=== PATIENT | male | born 1960 | race Caucasian/White ===

== ENCOUNTER 2017-07-21 15:44 | Emergency (ER) | payer OTHER ==
[2017-07-21] MEDS ORDERED: Aspirin Low Dose CHEW TAB* 81 MG PO ONE (16:12)
[2017-07-21] MEDS ORDERED: Ondansetron INJ* 2 MG/ML VIAL IV ONE (16:39)
[2017-07-21] MEDS ORDERED: Morphine INJ* 4 MG/ML 1 ML CARPUJECT IV ONE (16:39)
[2017-07-21 16:48] LABS: Hematocrit 33 % (42-52); Mean Corpuscular HGB Conc 34 g/dl (31-36); Mean Corpuscular Hemoglobin 31 pg (27-31); Mean Corpuscular Volume 91 fL (80-94); Mean Platelet Volume 7 um3 (7.4-10.4); Red Blood Count 3.55 10^6/ul (4.0-5.4); Red Cell Distribution Width 13 % (10.5-15); White Blood Count 7.2 10^3/ul (3.5-10.8)
--- NOTE | 2017-07-21 17:03 | RAD ---
HISTORY: Chest pain COMPARISONS: June 10, 2016 VIEWS:1: Single frontal portable view of the chest at 4:20 PM FINDINGS: LINES AND TUBES: None. CARDIOMEDIASTINAL SILHOUETTE: The cardiomediastinal silhouette is normal for portable technique. PLEURA: The costophrenic angles are sharp. No pleural abnormalities are noted. LUNG PARENCHYMA: The lungs are clear. ABDOMEN: The upper abdomen is clear. There is no subphrenic gas. BONES AND SOFT TISSUES: No bone or soft tissue abnormalities are noted. IMPRESSION: NO ACTIVE CARDIOPULMONARY DISEASE.
[2017-07-21 17:05] LABS: ALT 12 U/L (7-52); AST 9 U/L (13-39); Albumin 3.3 g/dL (3.2-5.2); Alkaline Phosphatase 52 U/L (34-104); BUN/Creatinine Ratio 17.9 (8-20); Blood Urea Nitrogen 12 mg/dL (6-24); CO2 Carbon Dioxide 22 mmol/L (22-32); Calcium 7.1 mg/dL (8.6-10.3); Chloride 114 mmol/L (101-111); EGFR African American 156.7 (>60); EGFR Non-African American 121.8 (>60); Glucose 81 mg/dL (70-100); Potassium 3.1 mmol/L (3.5-5.0); Sodium 134 mmol/L (133-145); Total Protein 5.3 g/dL (6.4-8.9)
[2017-07-21 17:07] LABS: Troponin I 0.03 ng/mL (<0.04)
[2017-07-21] MEDS ORDERED: Iohexol 350* (CONTRAST) 500 ML MDV IV ONE (17:46)
[2017-07-21 19:11] VITALS: BP 111/77
--- NOTE | 2017-07-21 19:12 | RAD ---
HISTORY: Chest pain, back pain COMPARISONS: None TECHNIQUE: Multiple contiguous axial CT scans were obtained of the chest, abdomen, and pelvis after the administration of intravenous contrast. Coronal and sagittal multiplanar reformations are submitted for review.. Oral contrast was not administered. 3-D volumetric reconstructions of the aorta are also submitted for review. FINDINGS: CHEST NECK AND THYROID: The lower neck and thyroid are unremarkable. CHEST WALL: There is no lower cervical, axillary, or supraclavicular lymphadenopathy by size criteria. HEART AND PERICARDIUM: The heart is unremarkable. AORTA AND PULMONARY VASCULATURE: There is atheromatous disease of the thoracic aorta, without aneurysmal dilatation or intimal flap. There is no pulmonary arterial filling defect to suggest pulmonary embolism. MEDIASTINUM: There is no mediastinal lymphadenopathy by size criteria. MARY KAY: There is no hilar lymphadenopathy by size criteria. AIRWAY AND ESOPHAGUS: The airway is unremarkable, without endobronchial filling defect. The esophagus is grossly normal. LUNG PARENCHYMA: There is centrilobular emphysematous change of the lung apices bilaterally. There is a 0.4 cm nodule of the right lower lobe on axial image 38. There is minimal dependent atelectasis. PLEURA: No pleural abnormalities are noted. BONES AND SOFT TISSUES: Degenerative changes are noted ABDOMEN/PELVIS: LIVER: The liver is normal in shape, size, contour, and attenuation. BILE DUCTS: There is no intrahepatic or extrahepatic biliary dilatation. GALLBLADDER: The gallbladder is normal, without pericholecystic inflammatory change. PANCREAS: The pancreas is normal, without mass or ductal dilatation. SPLEEN: Normal in size and appearance. UPPER GI TRACT: Evaluation of the gastrointestinal tract is limited by incomplete gastric distention. The upper GI tract is unremarkable. SMALL BOWEL \\T\\ MESENTERY: The small bowel is normal in contour, course, and caliber. There is no obstruction or dilatation. COLON: The colon is normal in contour, course, caliber. There is no pericolonic inflammatory change. There is a tubular, vermiform, hollow viscus that is blind ending, and originates from the cecum, consistent with a normal appendix. There is no periappendiceal inflammatory change. This is best seen on axial images 186-204. ADRENALS: Normal bilaterally. KIDNEYS: The kidneys are normal in shape, size, contour, and axis. There is no hydronephrosis or nephrolithiasis. BLADDER: The bladder is smooth in contour. PELVIC ORGANS: The prostate is diffusely enlarged. The seminal vesicles are symmetric. AORTA: There is calcific atherosclerotic disease of the abdominal aorta and its branches, without aneurysmal dilatation. There is no intimal flap. IVC: Unremarkable LYMPH NODES: There is no lymphadenopathy by size criteria. ABDOMINAL WALL: There is no evidence for abdominal wall hernia. BONES: Degenerative changes are noted OTHER: None IMPRESSION: 1. NO AORTIC INTIMAL FLAP TO SUGGEST DISSECTION. NO ANEURYSMAL DILATATION. 2. EMPHYSEMA. 3. 0.4 CM NODULE OF THE RIGHT LOWER LOBE. THE RECOMMENDATIONS FOR FOLLOWUP AND MANAGEMENT OF AN INCIDENTALLY DETECTED PULMONARY NODULE LESS THAN 6 MM IN SIZE, IN A PATIENT WITHOUT A HISTORY OF MALIGNANCY, INCLUDE NO FOLLOWUP FOR A LOW-RISK PATIENT OR OPTIONAL FOLLOWUP CT IN 12 MONTHS FOR A HIGH RISK PATIENT. 4. ENLARGED PROSTATE. 5. ATHEROSCLEROSIS NOTES: SIZE = AVERAGE LENGTH AND WIDTH; HIGH RISK IS DEFINED A HISTORY OF SMOKING OR OTHER KNOW RISK FACTORS FOR LUNG CANCER; LOW RISK IS DEFINED MINIMAL OR ABSENT HISTORY OF SMOKING OR OTHER KNOWN RISK FACTORS. Remy, H, TIFFANY Schmidt, FÉLIX Oliveros, et al (2017) "Guidelines for Management of Incidental Pulmonary Nodules Detected on CT Images: From the Fleischner Society 2017." Radiology; 284(1): 228-243. doi:10.1148/[id number]
--- NOTE | 2017-07-28 22:12 | ED ---
Kaycee Saldaña SooYoung, scribed for Angel Mchugh MD on 07/21/17 at 1632 . Complex/Multi-Sys Presentation - HPI Summary HPI Summary: A 56 y/o M TED presents to ED after possible sz with c/o L anterior CP and lower back pain. Pt woke up with low back pain this AM. Onset of the CP was later in the AM. At 1500, EMS was called because pt was having a sz. Per , pt fell out of his chair, onto the porch, then off the porch; pt was yelling, "my chest, my back." Pert PMHx: sz, MD, COPD. Associated sx: cough. Denies incontinence, LE numbness/tingling. gave pt Gapapentin for the sz. Pt also chewed 4 baby aspirin at home while waiting for the ambulance, and received nitro en route to ED to no relief. At bedside, CP is still present and rated as 6/10. Denies PMHx of stents, CABG, chronic back pain. Smoker. No ETOH. No drugs. Pt is on home O2. - History Of Current Complaint Chief Complaint: EDChestPainROMI Time Seen by Provider: 07/21/17 16:12 Hx Obtained From: Patient, Family/[employer] Operations Manager Onset/Duration: Lasting Hours - CP, Still Present - CP Timing: Constant Severity Initially: Moderate - CP rated as 6/10 Associated Signs And Symptoms: Positive: Cough, Chest Pain, Back Pain, Other - pos: sz; neg: LE numbness/tingling, incontinence - Allergies/Home Medications Allergies/Adverse Reactions: Allergies Allergy/AdvReac Type Severity Reaction Status Date / Time Penicillin G Allergy Severe Airway Verified 06/10/16 19:33 Obstruction PMH/Surg Hx/FS Hx/Imm Hx Previously Healthy: No Cardiovascular History: Reports: Hx Myocardial Infarction Respiratory History: Reports: Hx Chronic Obstructive Pulmonary Disease (COPD) Neurological History: Reports: Hx Seizures - Surgical History Surgery Procedure, Year, and Place: NO NEURO HX OF SURGERY Infectious Disease History: Denies: Traveled Outside the [place] in Last 30 Days - Family History Known Family History: Positive: Seizure Disorder - mom, Other - neg: aneurysm - Social History Occupation: Unemployed Lives: With Family Alcohol Use: Occasionally Hx Substance Use: No Substance Use Type: Reports: None Hx Tobacco Use: Yes Smoking Status (MU): Heavy Every Day Tobacco Smoker Review of Systems Negative: Fever, Chills Negative: Erythema Negative: Sore Throat Positive: Chest Pain Negative: Shortness Of Breath, Cough Negative: Abdominal Pain, Vomiting, Nausea Negative: dysuria, hematuria, incontinence Positive: Other - pos: low back pain. Negative: Edema Negative: Rash Neurological: Other - neg: dizziness Negative: Numbness All Other Systems Reviewed And Are Negative: Yes Physical Exam - Summary Physical Exam Summary: Constitutional: Well-developed, Well-nourished, Alert. (-) Distressed Skin: Warm, Dry HENT: Normocephalic; Atraumatic Eyes: Conjunctiva normal Neck: Musculoskeletal ROM normal neck. (-) JVD, (-) Stridor, (-) Tracheal deviation Cardio: Rhythm regular, rate normal, Heart sounds normal; Intact distal pulses; The pedal pulses are 2+ and symmetric. Radial pulses are 2+ and symmetric. (-) Murmur Pulmonary/Chest wall: Effort normal. (-) Respiratory distress, (-) Wheezes, (-) Rales Abd: Soft, (-) Tenderness, (-) Distension, (-) Guarding, (-) Rebound Musculoskeletal: (-) Edema. Pain with flexion of lower back, point tenderness at L3 and L4 Lymph: (-) Cervical adenopathy Neuro: Alert, Oriented x3 Psych: Mood and affect Normal Triage Information Reviewed: Yes Vital Signs On Initial Exam: Initial Vitals BP 117/69 07/21/17 16:24 Vital Signs Reviewed: Yes Diagnostics - Vital Signs Vital Signs Temp Pulse Resp BP Pulse Ox 07/21/17 19:00 79 16 92 07/21/17 18:39 84 18 92 07/21/17 18:00 73 13 111/77 98 07/21/17 17:30 72 17 114/73 100 07/21/17 17:15 37.2 C 72 16 118/69 100 07/21/17 17:00 73 16 118/69 98 07/21/17 16:44 16 07/21/17 16:30 17 121/82 07/21/17 16:25 73 19 97 07/21/17 16:24 117/69 - Laboratory Lab Results: Lab Results 07/21/17 07/21/17 07/21/17 Range/Units 16:35 16:35 16:35 WBC 7.2 (3.5-10.8) 10^3/ul RBC 3.55 L (4.0-5.4) 10^6/ul Hgb 11.0 L (14.0-18.0) g/dl Hct 33 L (42-52) % MCV 91 (80-94) fL MCH 31 (27-31) pg MCHC 34 (31-36) g/dl RDW 13 (10.5-15) % Plt Count 177 (150-450) 10^3/ul MPV 7 L (7.4-10.4) um3 Neut % (Auto) 71.2 (38-83) % Lymph % (Auto) 16.1 L (25-47) % [place] % (Auto) 8.8 (1-9) % Eos % (Auto) 3.2 (0-6) % Baso % (Auto) 0.7 (0-2) % Absolute Neuts (auto) 5.2 (1.5-7.7) 10^3/ul Absolute Lymphs (auto) 1.2 (1.0-4.8) 10^3/ul Absolute Monos (auto) 0.6 (0-0.8) 10^3/ul Absolute Eos (auto) 0.2 (0-0.6) 10^3/ul Absolute Basos (auto) 0.1 (0-0.2) 10^3/ul Absolute Nucleated RBC 0 10^3/ul Nucleated RBC % 0 Sodium 134 (133-145) mmol/L Potassium 3.1 L (3.5-5.0) mmol/L Chloride 114 H (101-111) mmol/L Carbon Dioxide 22 (22-32) mmol/L BUN 12 (6-24) mg/dL Creatinine 0.67 (0.67-1.17) mg/dL Est GFR ( Amer) 156.7 (>60) Est GFR (Non-Af Amer) 121.8 (>60) BUN/Creatinine Ratio 17.9 (8-20) Glucose 81 (70-100) mg/dL Lactic Acid 1.0 (0.5-2.0) mmol/L Calcium 7.1 L (8.6-10.3) mg/dL Total Bilirubin 0.30 (0.2-1.0) mg/dL AST 9 L (13-39) U/L ALT 12 (7-52) U/L Alkaline Phosphatase 52 (34-104) U/L Troponin I 0.03 (<0.04) ng/mL Total Protein 5.3 L (6.4-8.9) g/dL Albumin 3.3 (3.2-5.2) g/dL Globulin 2.0 (2-4) g/dL Albumin/Globulin Ratio 1.7 (1-3) // Range/Units 19:20 WBC (3.5-10.8) 10^3/ul RBC (4.0-5.4) 10^6/ul Hgb (14.0-18.0) g/dl Hct (42-52) % MCV (80-94) fL MCH (27-31) pg MCHC (31-36) g/dl RDW (10.5-15) % Plt Count (150-450) 10^3/ul MPV (7.4-10.4) um3 Neut % (Auto) (38-83) % Lymph % (Auto) (25-47) % [place] % (Auto) (1-9) % Eos % (Auto) (0-6) % Baso % (Auto) (0-2) % Absolute Neuts (auto) (1.5-7.7) 10^3/ul Absolute Lymphs (auto) (1.0-4.8) 10^3/ul Absolute Monos (auto) (0-0.8) 10^3/ul Absolute Eos (auto) (0-0.6) 10^3/ul Absolute Basos (auto) (0-0.2) 10^3/ul Absolute Nucleated RBC 10^3/ul Nucleated RBC % Sodium (133-145) mmol/L Potassium (3.5-5.0) mmol/L Chloride (101-111) mmol/L Carbon Dioxide (22-32) mmol/L BUN (6-24) mg/dL Creatinine (0.67-1.17) mg/dL Est GFR ( Amer) (>60) Est GFR (Non-Af Amer) (>60) BUN/Creatinine Ratio (8-20) Glucose (70-100) mg/dL Lactic Acid (0.5-2.0) mmol/L Calcium (8.6-10.3) mg/dL Total Bilirubin (0.2-1.0) mg/dL AST (13-39) U/L ALT (7-52) U/L Alkaline Phosphatase (34-104) U/L Troponin I 0.01 (<0.04) ng/mL Total Protein (6.4-8.9) g/dL Albumin (3.2-5.2) g/dL Globulin (2-4) g/dL Albumin/Globulin Ratio (1-3) Result Diagrams: 07/21/17 16:35 07/21/17 16:35 Lab Statement: Any lab studies that have been ordered have been reviewed, and results considered in the medical decision making process. - Radiology CXR Xray Interpretation: No Acute Changes - IMPRESSION: No active cardiopulmonary dz. ED physician has reviewed this radiology report and agrees. Radiology Interpretation Completed By: Radiologist - EKG 1636 Cardiac Rate: NL - 72 bpm EKG Rhythm: Sinus Rhythm ST Segment: Normal - no STEMI Complex Multi-Symp Course/Dx Course Of Treatment: Pt is a 56 y/o M BIBA presenting after possible sz with c/ o L anterior CP and lower back pain. Pt woke up with low back pain this AM. Onset of the CP was later in the AM. At 1500, EMS was called because pt was having a sz. Per , pt fell out of his chair, onto the porch, then off the porch; pt was yelling, "my chest, my back." Pert PMHx: sz, MD, COPD. Associated sx: cough. Denies incontinence, LE numbness/tingling. gave pt Gapapentin for the sz. Pt also chewed 4 baby aspirin at home while waiting for the ambulance, and received nitro en route to ED to no relief. At bedside, CP is still present and rated as 6/10. Denies PMHx of stents, CABG, chronic back pain. Smoker. No ETOH. No drugs. Pt is on home O2. Pt given morphine, aspirin , zofran in ED. Bloodwork results are without significant abnormality. EKG is NSR, no STEMI. CXR shows no active cardiopulmonary dz. SO to Dr. Nicholson at shift change, pending CTA read. Recommend second trop or admission. - Diagnoses Provider Diagnoses: Chest pain, unspecified Discharge - Discharge Plan Condition: Stable Disposition: AGAINST MEDICAL ADVICE Discharge Disposition Comment: SO to Dr. Nicholson, pending CTA read. Recommend repeat trop or admission. Referrals: Rosetta Myles NP [Primary Care Provider] - The documentation as recorded by the Kaycee hoskins SooYoung accurately reflects the service I personally performed and the decisions made by me, Angel Mchugh MD.
== END 2017-07-21 19:45 | disposition left against medical advice (07) ==
LOC: ED 15:44
DX: R07.89 Other chest pain (principal); M54.5 Low back pain; M54.9 Dorsalgia, unspecified; F17.210 Nicotine dependence, cigarettes, uncomplicated
CPT/HCPCS: 36415; 71010; 71275; 74174; 80053; 83605; 84484; 85025; 93005; 96374; 96375; 99284; J2270; J2405; Q9967

== ENCOUNTER 2017-08-28 19:46 | Emergency (ER) | payer OTHER ==
[2017-08-28 21:10] LABS: Hematocrit 41 % (42-52); Mean Corpuscular HGB Conc 34 g/dl (31-36); Mean Corpuscular Hemoglobin 31 pg (27-31); Mean Corpuscular Volume 92 fL (80-94); Mean Platelet Volume 7 um3 (7.4-10.4); Red Blood Count 4.49 10^6/ul (4.0-5.4); Red Cell Distribution Width 13 % (10.5-15)
[2017-08-28] MEDS ORDERED: LORazepam TAB(*) 1 MG PO ONE (21:24)
[2017-08-28 21:27] LABS: Troponin I 0.01 ng/mL (<0.04)
[2017-08-28 21:37] LABS: Albumin 4.1 g/dL (3.2-5.2); BUN/Creatinine Ratio 14.1 (8-20); Calcium 8.9 mg/dL (8.6-10.3); EGFR African American 119.1 (>60); EGFR Non-African American 92.6 (>60); Globulin 2.3 g/dL (2-4); Total Bilirubin 0.7 mg/dL (0.2-1.0); Total Protein 6.4 g/dL (6.4-8.9)
[2017-08-28 21:46] VITALS: BP 111/61
[2017-08-28 21:53] LABS: Urine Bilirubin Negative (Negative); Urine Glucose Negative (Negative); Urine Nitrite Negative (Negative)
--- NOTE | 2017-08-28 22:04 | RAD ---
INDICATION: "Choking episode" COMPARISON: Similar chest x-ray July 21, 2017 TECHNIQUE: PA and lateral views of the chest were obtained. FINDINGS: The heart and mediastinum are normal in size and contour. The lungs are grossly clear. There is no evidence of large pleural effusion. Visualized bones are normal for the patient's age. There is no radiographic evidence of free air beneath the diaphragm IMPRESSION: No radiographic evidence of acute cardiopulmonary disease.
--- NOTE | 2017-08-29 13:23 | ED ---
Heidi Saldaña Nilda, scribed for Angel Mchugh MD on 08/28/17 at 2127 . Neurological HPI - HPI Summary HPI Summary: This patient is a 56 year old M BIBA presenting to [facility] accompanied by family with a chief complaint of seizure earlier tonight. The patient rates the pain 4/ 10 in severity. Symptoms aggravated by stress. Symptoms alleviated by spontaneous resolution. Per EMS, patient was found in a post ictal state ( resolved 30 minutes ago). Per , patient had a seizure for 20-30 minutes and was unresponsive s/p seizure. Patient reports abdominal pain and vomiting. Patient denies memory of event, hitting his head, insomnia, tongue bite, urinary incontinence, ETOH abuse, and substance abuse. He is currently on Gabapentin. PMHx includes seizures. - History of Current Complaint Chief Complaint: EDSeizure Stated Complaint: SEIZURES Time Seen by Provider: 08/28/17 20:50 Hx Obtained From: Patient, Family/Is Technician, EMS Onset/Duration: Sudden Onset, Started hours ago, Resolved Pain Intensity: 4 Pain Scale Used: 0-10 Numeric Character: Other: - seizure followed by post ictal state Seizure Character: Generalized Aggravating: Stress Alleviating: Spontanious Resolution Associated Signs and Symptoms: Positive: Nausea/Vomiting - Allergy/Home Medications Allergies/Adverse Reactions: Allergies Allergy/AdvReac Type Severity Reaction Status Date / Time Penicillin G Allergy Severe Airway Verified 06/10/16 19:33 Obstruction PMH/Surg Hx/FS Hx/Imm Hx Cardiovascular History: Reports: Hx Myocardial Infarction Respiratory History: Reports: Hx Chronic Obstructive Pulmonary Disease (COPD) Neurological History: Reports: Hx Seizures - Surgical History Surgery Procedure, Year, and Place: NO NEURO HX OF SURGERY Infectious Disease History: No Infectious Disease History: Denies: Traveled Outside the [place] in Last 30 Days - Family History Known Family History: Positive: Seizure Disorder - mom, Other - neg: aneurysm - Social History Alcohol Use: None Alcohol Amount: NO ALCOHOL IN 2 YEARS Hx Substance Use: No Substance Use Type: Reports: None, Marijuana Hx Tobacco Use: Yes Smoking Status (MU): Heavy Every Day Tobacco Smoker Review of Systems Negative: Fever, Chills Negative: Erythema ENT: Other - negative tongue bite Negative: Sore Throat Negative: Chest Pain Negative: Shortness Of Breath, Cough Positive: Abdominal Pain, Vomiting. Negative: Nausea Negative: dysuria, flank pain, incontinence Negative: Myalgia, Edema Negative: Rash Neurological: Other - seizure with post ictal state, unresposiveness (resolved) ; negative dizziness, head trauma, memory of the event All Other Systems Reviewed And Are Negative: Yes Physical Exam - Summary Physical Exam Summary: Constitutional: Well-developed, Well-nourished, Alert. (-) Distressed Skin: Warm, Dry HENT: Normocephalic; Atraumatic; edentulous Eyes: Conjunctiva normal Neck: Musculoskeletal ROM normal neck. (-) JVD, (-) Stridor, (-) Tracheal deviation Cardio: Rhythm regular, rate normal, Heart sounds normal; Intact distal pulses; The pedal pulses are 2+ and symmetric. Radial pulses are 2+ and symmetric. (-) Murmur Pulmonary/Chest wall: Effort normal. (-) Respiratory distress, (-) Wheezes, (-) Rales Abd: Soft, (-) Tenderness, (-) Distension, (-) Guarding, (-) Rebound Musculoskeletal: (-) Edema Lymph: (-) Cervical adenopathy Neuro: Alert, Oriented x3 Psych: Mood and affect Normal Triage Information Reviewed: Yes Vital Signs On Initial Exam: Initial Vitals Temp Pulse Resp BP Pulse Ox 99.7 F 70 18 112/72 97 08/28/17 19:47 08/28/17 19:47 08/28/17 19:47 08/28/17 19:47 08/28/17 19:47 Vital Signs Reviewed: Yes - [place] Coma Scale Coma Scale Total: 15 Diagnostics - Vital Signs Vital Signs Temp Pulse Resp BP Pulse Ox 08/28/17 20:00 65 103/74 94 08/28/17 19:55 112/72 08/28/17 19:47 99.7 F 70 18 112/72 97 - Laboratory Lab Results: Lab Results 08/28/17 Range/Units 21:00 WBC 9.0 (3.5-10.8) 10^3/ul RBC 4.49 (4.0-5.4) 10^6/ul Hgb 14.0 (14.0-18.0) g/dl Hct 41 L (42-52) % MCV 92 (80-94) fL MCH 31 (27-31) pg MCHC 34 (31-36) g/dl RDW 13 (10.5-15) % Plt Count 214 (150-450) 10^3/ul MPV 7 L (7.4-10.4) um3 Neut % (Auto) 75.0 (38-83) % Lymph % (Auto) 13.3 L (25-47) % [place] % (Auto) 7.6 (1-9) % Eos % (Auto) 3.3 (0-6) % Baso % (Auto) 0.8 (0-2) % Absolute Neuts (auto) 6.7 (1.5-7.7) 10^3/ul Absolute Lymphs (auto) 1.2 (1.0-4.8) 10^3/ul Absolute Monos (auto) 0.7 (0-0.8) 10^3/ul Absolute Eos (auto) 0.3 (0-0.6) 10^3/ul Absolute Basos (auto) 0.1 (0-0.2) 10^3/ul Absolute Nucleated RBC 0 10^3/ul Nucleated RBC % 0 Result Diagrams: 08/28/17 21:00 08/28/17 21:00 Lab Statement: Any lab studies that have been ordered have been reviewed, and results considered in the medical decision making process. - Radiology CXR Radiology Interpretation Completed By: Radiologist - CXR reveals no radiographic evidence of acute cardiopulmonary disease. ED physician has reviewed this radiology report and agrees. - EKG 2103 Cardiac Rate: Bradycardia - 55 bpm EKG Rhythm: Sinus Bradycardia EKG Interpretation: No STEMI Course/Dx - Course Course Of Treatment: This patient is a 56 year old M BIBA presenting to [facility] accompanied by family with a chief complaint of seizure earlier tonight. The patient rates the pain 4/10 in severity. Symptoms aggravated by stress. Symptoms alleviated by spontaneous resolution. Per EMS, patient was found in a post ictal state (resolved 30 minutes ago). Per , patient had a seizure for 20-30 minutes and was unresponsive s/p seizure. Patient reports abdominal pain and vomiting. Patient denies memory of event, hitting his head, insomnia, tongue bite, urinary incontinence, ETOH abuse, and substance abuse. He is currently on Gabapentin. PMHx includes seizures. An EKG [2103] reveals sinus bradycardia, 55bpm, no STEMI. CXR reveals no radiographic evidence of acute cardiopulmonary disease. ED physician has reviewed this radiology report and agrees. Patient will be discharged with a diagnosis of stress reaction and breakthrough seizure and follow up from Dr. Monreal (Neuro) in 2-3 days. The patient is agreeable with this plan. - Diagnoses Provider Diagnoses: Breakthrough seizure, Stress reaction Discharge - Discharge Plan Condition: Stable Disposition: HOME Patient Education Materials: Stress (ED), Recurrent Seizures in Adults (ED) Forms: *Work Release Referrals: Rosetta Myles, JOAQUIN [Primary Care Provider] - Rah YAO,Sarkis [Medical Doctor] - 3 Days Additional Instructions: Follow up with Neurologist in 2-3 days. RETURN TO THE EMERGENCY DEPARTMENT FOR CHANGING OR WORSENING SYMPTOMS. The documentation as recorded by the Heidi hoskins Nilda accurately reflects the service I personally performed and the decisions made by , Angel Mchugh MD.
== END 2017-08-28 23:14 | disposition home or self-care (01) ==
LOC: ED 19:46
DX: R56.9 Unspecified convulsions (principal); F43.9 Reaction to severe stress, unspecified; R10.9 Unspecified abdominal pain; R11.10 Vomiting, unspecified; F17.210 Nicotine dependence, cigarettes, uncomplicated
CPT/HCPCS: 36415; 71020; 80053; 81003; 82550; 83605; 83735; 84484; 85025; 85610; 93005; 99282; A9270-GY

== ENCOUNTER 2017-12-17 15:40 | Observation (INO) | payer OTHER ==
[2017-12-17] MEDS ORDERED: NS 0.9% 1000 ML* 1,000 ML IV ONE (16:28)
[2017-12-17] MEDS ORDERED: Acetaminophen TAB* 325 MG PO ONE (16:30)
--- NOTE | 2017-12-17 17:09 | RAD ---
Indication: Fever. Single frontal view of the chest performed at 1702 hours was reviewed. Comparison is made with previous exam dated August 28, 2017. No mediastinal shift is noted. Lung bruce appear hyperinflated. Prominent interstitial markings are noted suggestive of vascular congestion. IMPRESSION: PROMINENT INTERSTITIUM SUGGESTIVE OF VASCULAR CONGESTION.
[2017-12-17] MEDS ORDERED: methylPREDNISolone 125 MG* 2 ML VIAL IV ONE (17:15)
[2017-12-17] MEDS ORDERED: Albuterol/Ipratropium NEB.SOL* Albuterol 2.5 MG/Ipratropium 0.5 MG 3 ML INH ONE (17:16)
[2017-12-17 17:17] LABS: Urine Appearance Clear; Urine Blood Negative (Negative); Urine Color Yellow; Urine Ketones Negative (Negative); Urine Protein Negative (Negative); Urine Specific Gravity 1.019 (1.010-1.030); Urine Urobilinogen Positive (Negative)
[2017-12-17] MEDS ORDERED: methylPREDNISolone 125 MG* 2 ML VIAL ONE (17:18)
[2017-12-17 17:32] LABS: ABS Basophils 0 10^3/ul (0-0.2); ABS Eosinophils 0.1 10^3/ul (0-0.6); ABS Lymphocytes 0.6 10^3/ul (1.0-4.8); ABS Neutrophils 5.9 10^3/ul (1.5-7.7); ABS Nucleated RBC 0 10^3/ul; Eosinophil % 1.9 % (0-6); Hematocrit 42 % (42-52); Hemoglobin 14.4 g/dl (14.0-18.0); Lymphocyte % 8.3 % (25-47); Mean Corpuscular HGB Conc 34 g/dl (31-36); Mean Corpuscular Hemoglobin 31 pg (27-31); Mean Corpuscular Volume 90 fL (80-94); Mean Platelet Volume 7 um3 (7.4-10.4); Nucleated Red Blood Cells % 0; Platelet Count 223 10^3/ul (150-450); Red Blood Count 4.68 10^6/ul (4.0-5.4); Red Cell Distribution Width 13 % (10.5-15); White Blood Count 7.8 10^3/ul (3.5-10.8)
[2017-12-17 17:49] LABS: EGFR Non-African American 82.1 (>60)
[2017-12-17 18:11] LABS: INR 1.1 (0.77-1.02)
[2017-12-17] MEDS ORDERED: Ondansetron INJ* 2 MG/ML VIAL IV PRN (19:04)
[2017-12-17] MEDS ORDERED: Albuterol 2.5 MG/3 ML NEB.SOL* (0.083%) INH PRN (19:04)
[2017-12-17] MEDS ORDERED: Acetaminophen TAB* 325 MG PO PRN (19:04)
--- NOTE | 2017-12-17 19:09 | ED ---
Heidi Saldaña Nilda, scribed for Abby Duncan MD on 12/17/17 at 1727 . Respiratory - HPI Summary HPI Summary: This patient is a 57 year old M BIBA accompanied by with a chief complaint of constant cold symptoms for over a week. Per , pt had mild seizure [facility] today while being seen for respiratory complaints. The patient rates the pain 0/10 in severity. 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 Patient reports fever, rhinorrhea, productive cough, SOB, and CP secondary to cough, but denies vomiting. Medications includes Gabapentin (for his seizures, no other antiepileptic meds) and Lipitor. Pt is seen by Dr. Mandel (neurologist, [place]) for seizure disorder. PMHx includes seizure disorder (daily), COPD, and HTN. Allergies include penicillin. Pt is noted with fever upon triage, 101.3. - History of Current Complaint Chief Complaint: EDGeneral Stated Complaint: SEIZURE-LIKE ACTIVITY Time Seen by Provider: 12/17/17 16:28 Hx Obtained From: Patient, Family/Welder [employer] - Onset/Duration: Sudden Onset, Lasting Weeks, Still Present Timing: Constant Initial Severity: Moderate Current Severity: Moderate Pain Intensity: 0 Character: Cough (Productive), Dyspnea at Rest Sputum Amount: Moderate Sputum Color: Green Aggravating Factor(s): Nothing Alleviating Factor(s): Neb. Bronchodilators (Frequency Of Use) - x 1 prior to arrival in ED Associated Signs and Symptoms: Fever, SOB, Chest Pain with Cough - Allergy/Home Medications Allergies/Adverse Reactions: Allergies Allergy/AdvReac Type Severity Reaction Status Date / Time Penicillin G Allergy Severe Airway Verified 12/17/17 15:58 Obstruction Home Medications: Home Medications Aspirin EC Low Dose* [Ecotrin EC Low Dose 81 MG*] 81 mg PO DAILY 12/17/17 [ History Confirmed 12/17/17] Atorvastatin* [Lipitor 10 MG*] 10 mg PO BEDTIME 12/17/17 [History Confirmed ] Gabapentin CAP(*) [Neurontin 100 mg CAP(*)] 100 mg PO TID 12/17/17 [History Confirmed 12/17/17] Lisinopril TAB* [Prinivil TAB 10 MG*] 20 mg PO DAILY 12/17/17 [History Confirmed 12/17/17] Primidone TAB(*) [Mysoline TAB(*)] 50 mg PO BID 12/17/17 [History Confirmed ] Sertraline* [Zoloft*] 25 mg PO BEDTIME 12/17/17 [History Confirmed 12/17/17] Spiriva Inhaler DEVICE* [Tiotropium Inhaler DEVICE*] 1 inh PO DAILY 12/17/17 [ History Confirmed 12/17/17] PMH/Surg Hx/FS Hx/Imm Hx Previously Healthy: No Cardiovascular History: Reports: Hx Myocardial Infarction Respiratory History: Reports: Hx Chronic Obstructive Pulmonary Disease (COPD) Neurological History: Reports: Hx Seizures - Surgical History Surgery Procedure, Year, and Place: NO HX OF SURGERY. Ingrown Toenail repair Infectious Disease History: No Infectious Disease History: Denies: Traveled Outside the [place] in Last 30 Days - Family History Known Family History: Positive: Seizure Disorder - mom, Other - CVA (mom); neg: aneurysm - Social History Lives: With Family Alcohol Use: None Alcohol Amount: NO ALCOHOL IN 2 YEARS Hx Substance Use: No Substance Use Type: Reports: Marijuana Hx Tobacco Use: Yes Smoking Status (MU): Heavy Every Day Tobacco Smoker Review of Systems Positive: Fever Negative: Blurred Vision, Diplopia Positive: Nasal Discharge Positive: Chest Pain - secondary to cough Positive: Shortness Of Breath, Cough Negative: Vomiting Skin: Negative Neurological: Other - seizure (resolved) Psychological: Normal All Other Systems Reviewed And Are Negative: Yes Physical Exam - Summary Physical Exam Summary: Appearance: Chronically Ill-appearing, moderate pain distress, Well-nourished, febrile Skin: Warm, color reflects adequate perfusion, flushed Head: Normal Head/Face inspection Eyes: Conjunctiva clear ENT: Normal inspection Neck: Supple, no nodes, no JVD. Respiratory: Lungs clear, decreased breath sounds throughout, respiration unlabored Cardio: Tachycardia, No murmur, pulses normal, brisk capillary refill Abdomen: soft, nontender Bowel sounds: present Musculoskeletal: Strength Intact/ ROM intact. No calf tenderness. No edema. Neuro: Alert, muscle tone normal, facial symmetry, speech normal, sensory/motor intact Psychological: Normal Triage Information Reviewed: Yes Vital Signs On Initial Exam: Initial Vitals Temp Pulse Resp BP Pulse Ox 101.3 F 109 23 133/73 97 12/17/17 15:53 12/17/17 15:53 12/17/17 15:53 12/17/17 15:53 12/17/17 15:53 Vital Signs Reviewed: Yes Diagnostics - Vital Signs Vital Signs Temp Pulse Resp BP Pulse Ox 12/17/17 15:53 101.3 F 109 23 133/73 97 - Laboratory Result Diagrams: 12/18/17 06:30 12/18/17 06:30 Lab Statement: Any lab studies that have been ordered have been reviewed, and results considered in the medical decision making process. - Radiology CXR Radiology Interpretation Completed By: Radiologist - CXR, per radiologist, reveals prominent interstitium suggestive of vascular congestion. Dr. Duncan has reviewed this radiology report. - EKG 1633 Cardiac Rate: Tachycardia EKG Rhythm: Sinus Tachycardia - [address] Segment: Non-Specific Ectopy: None EKG Interpretation: nl AVIVCT, nl QTc, Left axis -48 1811 Cardiac Rate: Tachycardia EKG Rhythm: Sinus Tachycardia - [address] Segment: Non-Specific Ectopy: None EKG Interpretation: nl AVIVCT, nl QTc, axis QRS 44 EKG Comparison: No Significant Change Re-Evaluation - Re-Evaluation First Eval Re-Evaluation Time: 18:00 Change: Improved - no seizures while in ED. Improved breathing after duoneb. Seizure pads in place on the stretcher. with pt. Disposition - Course Assessment/Plan: This patient is a 57 year old M BIBA accompanied by c/o constant fever and cold symptoms for the past week, and seizure that occured earlier today. Pending labs, EKG, and CXR. Labs reveal neg influenza, nl wbc with elevated monocytes. Nl BNP. An EKG reveals sinus tachycardia, 104 bpm, ST nonspecific, no ectopy, nl AVIVCT, nl QTc, left axis -48. A second EKG reveals sinus tachycardia, 101 bpm, ST nonspecific, no ectopy, nl AVIVCT, nl QTc, axis 44, no significant change from previous EKG. CXR, per radiologist, reveals prominent interstitium suggestive of vascular congestion. Dr. Duncan has reviewed this radiology report. Pt medications reviewed this visit. Allergies Noted. [1824] Dr. Bingham (hospitalist) agrees to admit pt. Pt will be admitted with Dx of tobacco abuse disorder, fever, and COPD exacerbation. Pt understands and agrees. - Differential Dx - Cardiopulmonary Differential Diagnoses - Cardiopulmonary: Bronchitis, CHF, Exacerbation Of COPD , Influenza, Lower Resp Infection - Diagnoses Provider Diagnoses: Tobacco abuse disorder, Fever, COPD exacerbation - Physician Notifications Discussed Care Of Patient With: Suzie Bingham - Hospitalist Time Discussed With Above Provider: 18:24 Instructed by Provider To: Admit As Inpatient Discharge - Discharge Plan Condition: Stable Disposition: ADMITTED TO [facility] The documentation as recorded by the Heidi hoskins Nilda accurately reflects the service I personally performed and the decisions made by Dakota ramsay Barbara J, MD.
[2017-12-17] MEDS ORDERED: Albuterol/Ipratropium NEB.SOL* Albuterol 2.5 MG/Ipratropium 0.5 MG 3 ML INH SCH (20:00)
[2017-12-17] MEDS ORDERED: cefTRIAXone(*) 1 GM in NS 0.9% 50 ML* 50 ML IVPB SCH (20:15)
[2017-12-17] MEDS: NS 0.9% 1000 ML* 1,000 ML IV SCH (20:24)
[2017-12-17] MEDS ORDERED: Atorvastatin* 10 MG TAB PO SCH (21:00)
[2017-12-17] MEDS ORDERED: Nicotine Patch Removal NOTE FOLLOW UP SCH (21:00)
[2017-12-17] MEDS ORDERED: Sertraline* 25 MG TAB PO SCH (21:00)
[2017-12-17] MEDS: predniSONE TAB* 20 MG PO SCH (21:48)
[2017-12-17] MEDS: Heparin VIAL(*) 5000 UNITS/ML VIAL (FIVE THOUSAND) SUBCUT SCH (21:48)
[2017-12-17] MEDS: Gabapentin CAP(*) 100 MG PO SCH (21:48)
[2017-12-17] MEDS: Primidone TAB(*) 50 MG PO SCH (21:49)
[2017-12-17] MEDS ORDERED: Azithromycin IV(*) 500 MG in NS 0.9% 250 ML* 250 ML IVPB SCH (22:00)
--- NOTE | 2017-12-17 22:50 | HP ---
CC: Levon Keen NP * DATE OF ADMISSION: 12/17/17 PRIMARY CARE PROVIDER: Levon Keen NP ATTENDING PHYSICIAN WHILE IN THE HOSPITAL: Suzie Bingham DO * (report dictated by Amish Wisdom NP) CHIEF COMPLAINT: 1. Cough. 2. Shortness of breath. 3. Question of seizure. HISTORY OF PRESENT ILLNESS: Mr. Chery is a 57-year-old male patient who has a history of seizures that he says are brought up on with coughing. He says that he did have what sounds like continuous EEG monitoring done in [place] and according to him at one point thought maybe related to anxiety. He is nonetheless on his low dose of gabapentin. He says this is for his seizures. He does see a neurologist in [place]. We will try to get these records, but he came in today mostly because he has been having progressive cough. He had a fever. He has been since last week not feeling well, feeling weak and feeling fatigued, just having a cough, has been productive of yellow sputum. He has been having issues with worsening shortness of breath. He has been having chills off and on. He had been feeling stuffed up. He has had a sore throat and some rhinorrhea and just feeling congested. He says he has been exposed to his partner, also she was sick with similar symptoms. Denied any chest pain with the exception when he coughs. He says it hurts his chest significantly. He denies having any abdominal pain and any nausea or vomiting and he says he is not having any pain currently, but he was concerned. He was not feeling good. He went to [facility]. While at [facility], he had an episode where he was shaking. He recalls this episode. There was a concern that may be this was a seizure and he has had a fever of 101 at [facility] and he was sent to the hospital here for further evaluation and workup. Because of fever and the fact that when he came in he appeared wheezing on exam, there was concern for COPD exacerbation and we were asked to evaluate for admission. PAST MEDICAL HISTORY: Significant for: 1. Pulmonary nodule. 2. Seizures. 3. Anxiety. 4. COPD. 5. Hyperlipidemia. 6. He has had an ND x2. PAST SURGICAL HISTORY: Denied. FAMILY HISTORY: Mother had a history of stroke, seizures. Father committed suicide. SOCIAL HISTORY: He is a half a pack a day smoker. He does not drink alcohol. Surrogate decision maker is his . REVIEW OF SYSTEMS: There is a documented fever here. He denied having any significant weight change. There was no double vision. He denies having any ear discharge. There is rhinorrhea. There is sore throat. He does admit to having a cough. He does admit to having chest pain when he does cough. He denies having any orthopnea or nocturnal dyspnea. He does admit to dyspnea on exertion. There is no abdominal pain. There is no nausea and no vomiting. There is no dysuria, no frequency, no seizure, no loss of consciousness. No pruritus. No skin ulcerations. Review of 14 systems was completed, all others negative. PHYSICAL EXAMINATION GENERAL: At this time, Mr. Chery is a 57-year-old male patient. He is sitting in the ED stretcher. He does not appear to be in any acute distress. VITAL SIGNS: Blood pressure 116/71, pulse 95, respirations 16, O2 sat 95%, temperature was 101.3. HEENT: Head: Atraumatic. Eyes: EOMs are intact. Sclerae anicteric and not pale. Throat: Oral mucosa appears to be moist. No oropharyngeal erythema. NECK: Supple. LUNGS: He did have rhonchi in the lower lobes. He had equal diaphragmatic expansion. There was wheezing in the upper lobes. No rales were heard. HEART: Sounds S1 and S2. Regular rate and rhythm. No murmurs, rubs, or gallops. ABDOMEN: Soft, flat, nontender. Bowel sounds are present. EXTREMITIES: Pulses were 2+ throughout. He is moving all 4 extremities with 5/ 5 strength. NEUROLOGIC: He is awake, he is alert, he is oriented x3. Tongue midline. Supervisor Audit Clerks were equal. No gross focal deficits. SKIN: Intact. DIAGNOSTIC STUDIES/LAB DATA: WBC is 7.8, RBC of 4.68, hemoglobin 14.4, hematocrit 42, platelet count of 223. INR 1.10, PTT of 34.5. Sodium was 133, potassium of 4.1, chloride of 101, bicarb of 29, BUN 11, creatinine 0.94, glucose 93, lactic 1.3, calcium 8.9, magnesium 2.4. Total bili 0.4, AST 12, ALT 15, alk phos 63. CK of 50, troponin 0.01, BNP of 49. He had an EKG that shows a sinus tachycardia, rate of 104. No ST elevations or T-wave inversions. It was reviewed to the previous EKG. It is similar with the exception the tachycardia is now new. He did have a chest x-ray obtained today, which revealed prominent interstitium suggestive of vascular congestion. Old medical records were reviewed. ASSESSMENT AND PLAN: Mr. Chery is a 57-year-old male patient coming into the ED today with complaints of weakness, cough, not feeling well, progressively over the last week. We were asked to evaluate for admission. He will be admitted under observation status for: 1. Chronic obstructive pulmonary disease exacerbation. Can consider he may have a viral bronchitis, which may be causing the fever and the chills and his weakness. His flu swab was negative. Toxicology was positive for cannabinoids. I do think that at this point he probably has an exacerbation from a viral illness. has been going on for just over a week and he has a high fever here of 101.3. I am going to go ahead and put him on antibiotics. I will put him on Dulera, prednisone and inhaled steroids to continue along with a flutter valve. We will get sputum culture, Legionella and Strep pneumo antigen. I will continue to follow him closely. 2. History of seizures. Again, I questioned if he may be having pseudoseizures. He has been told at one point, there was related anxiety. I would like to observe one of these events. He is on a low dose gabapentin. He says this is for seizure. Typically, the gabapentin in my understanding is that they would need a higher dose. We will try to get his records from his neurologist to see what they had to say about this and we will follow him. If he does have any seizures, obviously I will get an EEG and touch base with our Neurology here and start him on antiepileptics. We will continue to follow. 3. Pulmonary nodule. He had a pulmonary nodule on CT scan in June of this year. He can follow up with Levon Keen. 4. Anxiety. Continue with supportive care. 5. Hyperlipidemia. Continue meds as described. 6. DVT prophylaxis. He will be placed on heparin subcu. 7. Code status. He is a full code. 8. Fluids, electrolytes, and nutrition. He can have a regular diet. TIME SPENT: Time spent on the admission 60 minutes, greater than half the time spent [id number] with the patient obtaining my history and physical, other half time spent going over the plan of care with the patient and implementing the plan of care. I did discuss the plan of care with my attending, Dr. Bingham; she is in agreement. AMISH WISDOM, WIRE FRAME LAMPSHADE MAKER [id number]/CPS #: [id number] EMMANUEL
[2017-12-17] MEDS: Mometasone/Formoter 200/5 MDI INH SCH (23:15)
[2017-12-18] MEDS: Albuterol/Ipratropium NEB.SOL* Albuterol 2.5 MG/Ipratropium 0.5 MG 3 ML INH SCH ×4 (00:41→11:31)
[2017-12-18] MEDS: Heparin VIAL(*) 5000 UNITS/ML VIAL (FIVE THOUSAND) SUBCUT SCH (05:12)
[2017-12-18 06:51] LABS: ABS Basophils 0 10^3/ul (0-0.2); ABS Eosinophils 0 10^3/ul (0-0.6); ABS Lymphocytes 0.3 10^3/ul (1.0-4.8); ABS Monocytes 0.3 10^3/ul (0-0.8); ABS Neutrophils 9.4 10^3/ul (1.5-7.7); ABS Nucleated RBC 0 10^3/ul; Eosinophil % 0 % (0-6); Hematocrit 38 % (42-52); Hemoglobin 13.2 g/dl (14.0-18.0); Lymphocyte % 2.8 % (25-47); Mean Corpuscular HGB Conc 34 g/dl (31-36); Mean Corpuscular Hemoglobin 31 pg (27-31); Mean Corpuscular Volume 90 fL (80-94); Mean Platelet Volume 7 um3 (7.4-10.4); Nucleated Red Blood Cells % 0; Platelet Count 220 10^3/ul (150-450); Red Blood Count 4.25 10^6/ul (4.0-5.4); Red Cell Distribution Width 13 % (10.5-15)
[2017-12-18 07:04] LABS: EGFR Non-African American 76.5 (>60)
[2017-12-18] MEDS ORDERED: Nicotine PATCH 21 MG/24 HR* PATCH TRANSDERM SCH (08:00)
[2017-12-18] MEDS: Mometasone/Formoter 200/5 MDI INH SCH (08:19)
[2017-12-18] MEDS: NS 0.9% 1000 ML* 1,000 ML IV SCH (08:35)
[2017-12-18] MEDS: predniSONE TAB* 20 MG PO SCH (08:37)
[2017-12-18] MEDS: Gabapentin CAP(*) 100 MG PO SCH (08:38)
[2017-12-18] MEDS: Primidone TAB(*) 50 MG PO SCH (08:38)
[2017-12-18] MEDS ORDERED: Aspirin EC Low Dose* 81 MG TAB.EC PO SCH (09:00)
[2017-12-18] MEDS ORDERED: Lisinopril TAB* 10 MG PO SCH (09:00)
[2017-12-18 11:29] VITALS: BP 107/46
--- NOTE | 2017-12-19 01:19 | DS ---
CC: Dr. Adams; Levon Keen NP * DISCHARGE SUMMARY: DATE OF ADMISSION: 12/17/17 DATE OF DISCHARGE: 12/18/17 PRIMARY CARE PROVIDER: Levon Keen NP PRINCIPAL DIAGNOSES: 1. Chronic obstructive pulmonary disease exacerbation. 2. Probable bronchitis. SECONDARY DIAGNOSES: 1. Possible seizure disorder versus nonepileptic seizures. 2. Anxiety. 3. Hyperlipidemia. 4. Coronary artery disease. DISCHARGE MEDICATIONS: 1. Spiriva 1 puff inhaled daily. 2. Lipitor 10 mg p.o. q.h.s. 3. Lisinopril 20 mg p.o. daily - hold until seen by PCP. 4. Gabapentin 100 mg p.o. t.i.d. 5. Aspirin 81 mg p.o. daily. 6. Sertraline 25 mg p.o. q.h.s. 7. Primidone 50 mg p.o. b.i.d. 8. Prednisone 40 mg p.o. daily x3 days, then 30 mg x3 days, then 20 mg x3 days , then 10 mg x3 days. 9. Dulera 200/5 two puffs inhaled twice daily. 10. Levaquin 500 mg p.o. daily x6 doses. HOSPITAL COURSE: Mr. Chery is a 57-year-old male who presented to the emergency room on 12/17/17 after being sent from [facility]. The patient presented there with fever and shortness of breath. The patient also had a questionable seizure as his arm was noted to be shaking. The patient was seen in our emergency room and had a fever of 101.3. The patient was admitted for possible COPD exacerbation and likely bronchitis. Given the persistence of symptoms for several days, the decision was made to start antibiotic therapy. The patient was started on ceftriaxone and azithromycin; however, we will change to Levaquin to complete 6 more days of therapy. The patient will also go out on a prednisone taper over the next 12 days. The patient on the day of discharge is saturating fine on room air and has no wheezing on exam. His breath sounds are diminished. The patient has ambulated in the hallway without any difficulty. At this point, he is requesting discharge home. The patient's fever has resolved. In terms of possible seizure, the history provided sounds that the patient likely has nonepileptic seizures. At this point, I will not change his medication regimen of gabapentin 100 mg p.o. 3 times daily. He will continue to follow up with his neurologist in [place] as an outpatient. The patient has a history of hypertension. His blood pressure has been soft in the hospital and therefore, I am asking the patient to hold his lisinopril until he is seen his new primary care provider this coming . FOLLOWUP CONCERNS: The patient is being discharged home today on 12/18/17. ACTIVITY LEVEL: As tolerated. DIET: Regular. CONDITION ON DISCHARGE: Stable. FOLLOWUP: The patient is to follow up with Levon Keen NP on 12/20/17 at 9:[address] Adams on 01/03/18 at 7 a.m. TIME SPENT: Thirty-five minutes was spent discharging this patient. [id number]/CPS #: [id number] EMMANUEL
== END 2017-12-18 12:45 | disposition home or self-care (01) ==
LOC: ED 15:40 → MEDTELE 19:00
PROVIDERS: ADMIT Hospitalist; ATTEND Hospitalist
DX: J44.1 Chronic obstructive pulmonary disease with (acute) exacerbation (principal); R07.9 Chest pain, unspecified; F41.9 Anxiety disorder, unspecified; E78.5 Hyperlipidemia, unspecified; I25.10 Atherosclerotic heart disease of native coronary artery without angina pectoris; R06.02 Shortness of breath; R05 Cough; F17.210 Nicotine dependence, cigarettes, uncomplicated; R50.9 Fever, unspecified; Z79.82 Long term (current) use of aspirin
CPT/HCPCS: 36415; 71045; 80048; 80053; 80307; 80320; 81003; 82550; 83605; 83735; 83880; 84484; 85025; 85610; 85730; 87040; 87070; 87205; 87502; 87899; 93005; 94640; 94760; 96374; 99284; A9270-GY; G0378; G0480; J0456; J0696; J1644; J2930; J7512

== ENCOUNTER 2018-06-07 19:53 | Emergency (ER) | payer OTHER ==
--- OUTSIDE RECORDS SUMMARY | 2018-06-07 20:11 | XMS REPORT ---
:1960 External Reference #:[id number] Author Organization [facility] Address [address] [place] [id number] Phone [phone] Care Team Providers Name Role Phone Kaylie Foster FNP Primary Care Physician Unavailable Payers Type Date Identification Numbers Payment Provider Subscriber Commercial Effective: Policy Number: [id number] Michael [facility] Luis Antonio Chery 2013 PayID: [id number] [address] [place] [address] Medigap Part B Policy Number: [id number] Medicaid Wrap Luis Antonio Chery PayID: [id number] [address] [place] [address] Problems Date Description Provider Status Onset: 06/19/2016 Other seizures Radha Myles Active Onset: 06/19/2016 Chronic obstructive lung disease Radha Myles Active Onset: 03/22/2017 Essential tremor Radha Myles Active Onset: 03/22/2017 Carotid artery occlusion Radha Myles Active Onset: 03/22/2017 Mixed hyperlipidemia Radha Myles Active Onset: 07/23/2017 Low back pain Radha Myles Active Onset: 06/06/2018 Essential hypertension REINIER Ferguson Active Onset: 06/19/2016 Substance abuse counseling Radha Myles Resolved Resolved: 04/17/2018 Onset: 08/17/2016 Dysuria Radha Myles Resolved Resolved: 04/17/2018 Onset: 08/17/2016 Nicotine dependence, cigarettes, w oth Radha Myles Resolved disorders Resolved: 04/17/2018 Onset: 10/20/2016 Screening for malignant neoplasm of Radha Myles Resolved colon Resolved: 04/17/2018 Onset: 02/12/2017 Bronchitis Radha Myles Resolved Resolved: 04/17/2018 Onset: 07/23/2017 Chest pain Radha Myles Resolved Resolved: 04/17/2018 Family History Date Family Member(s) Problem(s) Comments General Cellulitis General Seizure Disorder Social History Type Date Description Comments ETOH Use 06/06/2018 Denies alcohol use Recreational Drug Use 06/06/2018 marjuana Smoking Patient is a current smoker, smokes every day Smoking 06/06/2018 Light tobacco smoker (10 or fewer cigarettes/day) Hygiene 06/06/2018 Does not see dentist on a regular basis Allergies, Adverse Reactions, Alerts Date Description Reaction Status Severity Comments 06/19/2016 Penicillins vomiting active Medications Medication Date Status Form Strength Qnty SIG Indications Ordering Provider Anoro Ellipta 06/06/ Active Aerosol 62.5-25mc 1unit 1 aero pow Rachid 2017 g/Inh s br act Jackelin, daily, 1 DO inhaler Calcium 600 + 07/24/ Active Tablets 600-200mg 60tab 1 by mouth Rachid D 2017 -Unit s twice a day Jackelin, DO Baclofen 07/23/ Active Tablets 10mg 90tab take one M54.5 Rachid 2016 s tablet by Jackelin, mouth 3 DO times a day as needed for muscle spasms Albuterol 06/19/ Active Nebulizer (2.5mg/3M 150un 1 box 1 Rachid Sulfate 2015 L) 0.083% its slutin 4 Jackelin, times daily DO as needed Ventolin HFA 06/19/ Active Aerosol 108(90Bas 1unit 2 Rachid 2015 e) s inhalations Jackelin, mcg/Act every four DO hours, as needed, 1 inhaler Aspirin 06/19/ Active Tablets DR 81mg 90tab take one Rachid 2016 s tablet by Jackelin, mouth every DO day Atorvastatin / Active Tablets 10mg 90tab take one Rachid Calcium s tablet by Jcakelin, mouth at DO bedtime Lisinopril / Active Tablets 20mg 90tab take one I11.9 Rachid 0000 s tablet by Jackelin, mouth every DO day Gabapentin / Active Capsules 100mg 90cap take one G25.0 Rachid 0000 s capsule by Jackelin, mouth three DO times a day Prednisone / Active Tablets 50mg 1 qd Unknown 0000 Potassium 07/24/ Hx Tablets ER 10Meq 12tab 2 by mouth 3 Rachid Chloride Em 2017 - s times every Jackelin, ER 06/06/ day for 2 DO 2017 days. Prednisone 07/23/ Hx Tablets 10mg 20tab take 4 pills R07.89 Rachid 2016 - s first 2 Jackelin, 09/04/ days, 3 2016 pills for 2 days, 2 pills for 2 days, and 1 pill for 2 days. Primidone 06/15/ Hx Tablets 50mg 30tab take one Rachid 2016 - s tablet by Jackelin, 09/19/ mouth once DO 2016 daily Nicotrol 05/28/ Hx Inhaler 10mg 240un 1 cartridge F17.218 Rachid 2017 - its every 3 Jackelin, 06/06/ hours as DO 2017 needed Primidone 03/22/ Hx Tablets 50mg 30tab 1 by mouth G25.0 Rachid 2016 - s every day Jackelin, 05/28/ 2016 Bupropion HCL 03/22/ Hx Tablets ER 150mg 60tab take 1 by F17.218 Rachid ER (SR) 2017 - 12HR s mouth twice Jackelin, 05/28/ a day, after 2016 3 days at 150mg Bupropion HCL 03/22/ Hx Tablets ER 150mg 3tabs 1 by mouth F17.218 Rachid ER (XL) 2017 - 24HR every day Jackelin, 05/27/ for 3 days 2016 Azithromycin 02/12/ Hx Tablets 250mg 6tabs take 2 pills J40 Rachid 2016 - today, 1 Jackelin, 03/22/ pill daily DO 2016 after today Prednisone 02/12/ Hx Tablets 10mg 20tab take 4 pills J40 Rachid 2016 - s first 2 Jackelin, 03/22/ days, 3 2016 pills for 2 days, 2 pills for 2 days, and 1 pill for 2 days. Proair HFA 06/19/ Hx Aerosol 108(90Bas 1unit 2 puffs 4 Rachid 2015 - e) s times daily Jackelin, 06/06/ mcg/Act DO 2017 Combivent 06/19/ Hx Aerosol 20-100mcg 1unit 1 inhalation Rachid Respimat 2015 - /Act s 4 times Jackelin, 06/06/ daily DO 2017 Symbicort 06/19/ Hx Aerosol 160-4.5mc 1inha 2 puff twice Rachid 2015 - g/Act ler a day Jackelin, 2017 Nicotine Step 06/19/ Hx Patches 14mg/24HR 30uni apply 1 Rachid 2 2015R ts topically Jackelin, 03/22/ daily DO 2016 Nasal Moist Hx Solution 0.65% one Gel q hr Rachid 2016 - Jackelin, 2017 Lorazepam 06/19/ Hx Tablets 1mg 30tab 1 tablet po Rachid 2015 - s qd Jackelin, 2015 Spiriva 06/15/ Hx Aerosol 1.25mcg/A 4unit Inhale One Rachid Respimat 2015 - ct s puff By Jackelin, 06/06/ Mouth Every DO 2017 Day Immunizations CPT Code Status Date Vaccine Lot # [id number] Given 10/05/2014 Influenza Virus Vaccine, Quadrivalent, Split, Preservative Free [id number] Given 10/15/2013 Influenza Virus Vaccine, Quadrivalent, Split, Preservative Free Vital Signs Date Vital Result Comment 06/06/2018 Height 67.25 inches 5'7.25" Weight 201.00 lb BP Systolic Recheck 114 mmHg BP Diastolic Recheck 74 mmHg Heart Rate 82 /min O2 % BldC Oximetry 97 % Respiratory Rate 20 /min Body Temperature 97.3 F BMI (Body Mass Index) 31.2 kg/m2 Height in cm's 170.8 cm Pain Level 0 09/04/2017 Height 67.25 inches 5'7.25" Weight 214.00 lb BP Systolic 121 mmHg BP Diastolic 74 mmHg Heart Rate 69 /min O2 % BldC Oximetry 95 % Respiratory Rate 20 /min Body Temperature 97.3 F BMI (Body Mass Index) 33.3 kg/m2 Height in cm's 170.8 cm 07/23/2017 Height 67.25 inches 5'7.25" Weight 209.00 lb BP Systolic 108 mmHg BP Diastolic 82 mmHg Heart Rate 87 /min O2 % BldC Oximetry 93 % Respiratory Rate 20 /min Body Temperature 97.2 F BMI (Body Mass Index) 32.5 kg/m2 Height in cm's 170.8 cm 05/28/2017 Height 67.25 inches 5'7.25" Weight 209.00 lb BP Systolic Recheck 114 mmHg BP Diastolic Recheck 79 mmHg Heart Rate 84 /min O2 % BldC Oximetry 92 % Respiratory Rate 20 /min Body Temperature 97.1 F BMI (Body Mass Index) 32.5 kg/m2 Height in cm's 170.8 cm 03/22/2017 Height 67.25 inches 5'7.25" Weight 210.00 lb BP Systolic 107 mmHg BP Diastolic 71 mmHg Heart Rate 75 /min O2 % BldC Oximetry 95 % Respiratory Rate 20 /min Body Temperature 97.0 F BMI (Body Mass Index) 32.6 kg/m2 Height in cm's 170.8 cm 02/12/2017 Height 67.25 inches 5'7.25" Weight 208.00 lb BP Systolic 111 mmHg BP Diastolic 78 mmHg Heart Rate 95 /min O2 % BldC Oximetry 95 % Respiratory Rate 24 /min Body Temperature 98.0 F BMI (Body Mass Index) 32.3 kg/m2 Height in cm's 170.8 cm 10/20/2016 Height 67.25 inches 5'7.25" Weight 219.00 lb BP Systolic 102 mmHg BP Diastolic 69 mmHg Heart Rate 74 /min O2 % BldC Oximetry 90 % Respiratory Rate 20 /min Body Temperature 97.8 F BMI (Body Mass Index) 34.0 kg/m2 Height in cm's 170.8 cm 08/17/2016 Height 67.25 inches 5'7.25" Weight 217.00 lb BP Systolic 110 mmHg BP Diastolic 78 mmHg Heart Rate 80 /min O2 % BldC Oximetry 94 % Respiratory Rate 20 /min Body Temperature 97.0 F BMI (Body Mass Index) 33.7 kg/m2 Height in cm's 170.8 cm 06/19/2016 Height 67.25 inches 5'7.25" Weight 214.00 lb BP Systolic 108 mmHg BP Diastolic 75 mmHg Heart Rate 75 /min O2 % BldC Oximetry 93 % Respiratory Rate 20 /min Body Temperature 97.2 F BMI (Body Mass Index) 33.3 kg/m2 Height in cm's 170.8 cm Results Test Date Test Result H/L Range Note CBC Diff Man Diff 03/22/2017 WBC 9.4 K/uL 4.8-10.8 RBC 4.71 M/uL 4.60-6.20 Hemoglobin 15.1 gm/dL 13.5-18.0 Hematocrit 43.7 % 41.0-53.0 MCV 92.7 fL 80.0-100.0 MCH 32.1 pg 27.0-34.0 MCHC 34.6 % 30.0-36.5 RDW 11.7 % 11.0-15.0 Platelet 240 K/uL 130-450 MPV 6.6 fL 6.0-12.0 Diff Type MANUAL DIFFERENT <SEE NOTE> 1 Neutrophil 73 % 37-80 Atypical Lymphocyte 2 % Eosinophil 1 % <=8 Lymphocyte 21 % 10-50 Monocyte 3 % <=12 Comprehensive Panel 03/22/2017 Sodium 136 mmol/L 136-145 Potassium 4.8 mmol/L 3.5-5.2 Chloride 104 mmol/L 100-108 Co2 24 mmol/L 21-32 Glucose 101 mg/dL High 70-100 BUN 15 mg/dL 7-21 Creatinine 0.9 mg/dL 0.6-1.3 2 Calcium 9.1 mg/dL 8.5-10.8 GFR >60 T Bili 0.5 mg/dL 0.0-1.2 T Protein 6.7 gm/dL 6.4-8.2 Albumin 4.5 gm/dL 3.4-4.8 Alk Phos 75 U/L 40-150 Alt (SGPT) 18 U/L 0-55 Ast (Sgot) 15 U/L 5-37 Lipid Panel 03/22/2017 Cholesterol 141 mg/dL 120-200 Triglycerides 64 mg/dL 0-149 HDL Cholesterol 40 mg/dL 40-60 Chol/HDL Ratio 3.5 <=4.9 3 LDL Direct 113 mg/dL High 0-99 VLDL Calculated 13 Thyroid Profile(T3+T4+TSH) 03/22/2017 TSH 0.52 uIU/mL 0.34-4.82 T4 4.2 g/dL Low 4.7-13.0 T3 Uptake Units 1.13 TBI 0.69-1.41 Ua/M+Urine Culture 08/24/2016 Specific [place] 1.020 1.005-1.030 4 pH 6.0 5.0-7.5 5 Urine-Color Yellow Yellow 6 Appearance Clear Clear 7 WBC Esterase Trace Negative 8 Protein Negative Negative/Trace 9 Glucose Negative Negative 10 Ketones Negative Negative 11 Occult Blood Negative Negative 12 Bilirubin Negative Negative 13 Urobilinogen,Semi-Qn 0.2 EU/dL 0.2-1.0 14 Nitrite, Urine Negative Negative 15 Microscopic Examination TNP 16 Urine Culture, Routine Final report 17 Result 1 See Comment: 18 Microscopic Examination 08/24/2016 Reflex Microscopic Examination See below : WBC 0-5 /hpf 0 - 5 19 RBC 0-2 /hpf 0 - 2 20 Epithelial Cells (non renal) 0-10 /hpf 0 - 10 21 Epithelial Cells (renal) TNP 22 Casts TNP 23 Cast Type TNP 24 Crystals Present N/A 25 Crystal Type Calcium Oxalate N/A 26 Mucus Threads Present Not Estab. 27 Bacteria Few None seen/Few 28 Yeast TNP 29 Trichomonas TNP 30 Comment TNP 31 Laboratory test finding 08/24/2016 PDF [id number] SEE IMAGE Aldosterone (07077) 04/14/2016 Aldosterone 1.4 ng/dL 0.0-30.0 CBC, Platelets & Aut Diff 04/14/2016 Ba% 1 % <=3 (82207) Baso# 0.0 K/ul 0.0-0.3 Eo% 5 % <=8 Eos# 0.4 K/uL 0.0-0.9 Hematocrit 44.4 % 41.0-53.0 Hemoglobin 14.8 gm/dL 13.5-18.0 Ly% 18 % 10-50 Lymph# 1.5 K/uL 0.5-5.0 MCH 31.1 pg 27.0-34.0 MCHC 33.4 % 30.0-36.5 MCV 93.1 fL 80.0-100.0 MPV 6.5 fL 6.0-12.0 Mo% 7 % 0-12 [place]# 0.6 K/uL 0.0-1.3 NE# 5.5 K/uL 1.8-8.6 NE% 69 % 37-80 Platelet 243 K/uL 130-450 RBC 4.77 M/uL 4.60-6.20 RDW 11.6 % 11.0-15.0 WBC 7.9 K/uL 4.8-10.8 Lipid Panel (99840) 04/14/2016 Chol/HDL Ratio 4.2 <=4.9 Cholesterol 148 mg/dL 120-200 HDL Cholesterol 35 mg/dL 40-60 LDL Direct 102 mg/dL 0-99 Triglycerides 133 mg/dL 0-149 VLDL Calculated 27 Metabolic Panel, Comprehensive (29252) 04/14/2016 Albumin 4.3 gm/dL 3.4- 4.8 Alk Phos 72 U/L 40-150 Alt (SGPT) 18 U/L 0-55 Ast (Sgot) 14 U/L 5-37 BUN 13 mg/dL 7-21 Calcium 8.8 mg/dL 8.5-10.8 Chloride 105 mmol/L 100-108 Co2 24 mmol/L 21-32 Creatinine 0.9 mg/dL 0.6-1.3 GFR >60 Glucose 117 mg/dL 70-100 Potassium 3.8 mmol/L 3.5-5.2 Sodium 138 mmol/L 136-145 T Bili 0.5 mg/dL 0.0-1.2 T Protein 6.3 gm/dL 6.4-8.2 TSH (Thyroid Stimulating Hormone) (23517) 04/14/2016 TSH 0.88 uIU/mL 0.34 -4.82 Culture Urine (48028) 11/04/2015 See Note See Note Isolate 1 20,000 col/mL Streptococcus agalactiae (Group B) Urine Dipstick (In House) (Full Panel) 11/04/2015 Ua - Bilirubin Negative (81165) Ua - Blood Negative Ua - Glucose Negative Ua - Ketones +/Small Ua - Leukocyte Esterase + Ua - Nitrite Negative Ua - PH 6 Ua - Protein Trace Ua - Specific [place] 1.030 Ua - Urobilinogen Normal TSH 09/14/2015 TSH 1.11 uIU/mL 0.34-4.82 Lipid Panel 09/14/2015 Chol/HDL Ratio 3.4 <=4.9 Cholesterol 131 mg/dL 120-200 HDL Cholesterol 38 mg/dL 40-60 LDL Direct 85 mg/dL 0-99 Triglycerides 107 mg/dL 0-149 VLDL Calculated 21 Comprehensive Panel 09/14/2015 Albumin 4.1 gm/dL 3.4-4.8 Alk Phos 106 U/L 50-136 Alt (SGPT) 30 U/L 12-78 Ast (Sgot) 11 U/L 15-37 BUN 9 mg/dL 7-21 Calcium 9.1 mg/dL 8.5-10.8 Chloride 103 mmol/L 100-108 Co2 25 mmol/L 21-32 Creatinine 0.9 mg/dL 0.6-1.3 GFR >60 Glucose 85 mg/dL 70-110 Potassium 4.1 mmol/L 3.6-5.2 Sodium 136 mmol/L 136-145 T Bili 0.6 mg/dL 0.0-1.0 T Protein 7.3 gm/dL 6.4-8.2 CBC 09/14/2015 Hematocrit 45.9 % 41.0-53.0 Hemoglobin 15.2 gm/dL 13.5-18.0 MCH 31.1 pg 27.0-34.0 MCHC 33.1 % 30.0-36.5 MCV 93.9 fL 80.0-100.0 MPV 6.2 fL 6.0-12.0 Platelet 258 K/uL 130-450 RBC 4.88 M/uL 4.60-6.20 RDW 11.2 % 11.0-15.0 WBC 10.4 K/uL 4.8-10.8 1 MANUAL DIFFERENTIAL 2 Normal Kidney Function or Mild Disease - GFR >OR=60 Chronic Kidney Disease - GFR 15-59 Renal Failure - GFR < 15 GFR not calculated on patients under 18 years of age. 3 Cholesterol/HDL Ratio Interpretation Risk : 1/2 Avg Avg 2x Avg 3x Avg Male : 3.43 4.97 9.50 23.99 Female : 3.27 4.44 7.05 11.04 4 Source of Specimen: UR CD- 94787 5 Source of Specimen: UR CD- 30113 6 Source of Specimen: UR CD- 42986 7 Source of Specimen: UR CD- 53149 8 Source of Specimen: UR CD- 80600 9 Source of Specimen: UR CD- 59802 10 Source of Specimen: UR CD- 27638 11 Source of Specimen: UR CD- 84634 12 Source of Specimen: UR CD- 10114 13 Source of Specimen: UR CD- 23182 14 Source of Specimen: UR CD- 04381 15 Source of Specimen: UR CD- 05077 16 Source of Specimen: UR CD- 61001 17 Source of Specimen: UR CD- 80954 18 Source of Specimen: UR CD- 56524 Culture shows less than 10,000 colony forming units of bacteria per milliliter of urine. This colony count is not generally considered to be clinically significant. 19 Source of Specimen: UR CD- 56878 20 Source of Specimen: UR CD- 55355 21 Source of Specimen: UR CD- 30014 22 Source of Specimen: UR CD- 47632 23 Source of Specimen: UR CD- 80630 24 Source of Specimen: UR CD- 95089 25 Source of Specimen: UR CD- 61345 26 Source of Specimen: UR CD- 15871 27 Source of Specimen: UR CD- 89727 28 Source of Specimen: UR CD- 73240 29 Source of Specimen: UR CD- 64749 30 Source of Specimen: UR CD- 75884 31 Source of Specimen: UR CD- 01817 Procedures Date CPT Code Description Status 06/06/2018 92249 Pulse Oximetry Single Determination Completed 09/04/2017 23083 Pulse Oximetry Single Determination Completed 03/22/2017 42011 Venipuncture Diagnostic/Therapeutic > 3 Yrs Completed 06/19/2016 63332 Pulse Oximetry Single Determination Completed 01/20/2016 [id number] Competitive Bidding Demo Project Completed Encounters Type Date Location Provider CPT E/M Dx Office Visit 06/06/2018 2:30p Adult Medicine REINIER Ferguson 40057 J44.9 F17.210 I10 Office Visit 09/04/2017 10:15a Adult Medicine ZULEIKA Fernandez 66363 Z51.89 G40.89 J44.9 F17.210 Office Visit 07/23/2017 10:30a Adult Medicine Radha Myles 06791 R07.89 M54.5 Office Visit 05/28/2017 1:00p Adult Medicine Radha Myles 36491 J44.9 E78.2 G25.0 F17.218 Office Visit 03/22/2017 10:00a Adult Medicine Radha Myles 47100 G25.0 F17.218 J44.9 I65.22 E78.2 Office Visit 02/12/2017 2:15p Adult Medicine Radha Myles 71692 J40 Office Visit 10/20/2016 10:00a Adult Medicine Radha Myles 53054 R30.0 Z12.11 Office Visit 08/17/2016 2:30p Adult Medicine Radha Myles 90800 R30.0 J44.9 F17.218 Office Visit 06/19/2016 2:00p Adult Medicine Radha Myles 15020 G40.89 J44.9 Plan of Care 06/06/2018 - REINIER FergusonJ44.9 Chronic obstructive pulmonary disease, [id number] Nicotine dependence, cigarettes, [id number] Essential ( primary) hypertensionNew Labs:CMP 13 With CBC W/Diff & PLTHemoglobin A1cPSA Free & TotalNew Medication:Anoro Ellipta 62.5-25 mcg/InhFollow up:5 months
--- NOTE | 2018-06-07 20:44 | ED ---
Neurological HPI - HPI Summary HPI Summary: This patient is a 57 year old M BIBA to [facility] accompanied by with a chief complaint of seizure like activity that began [employer] and worsened upon EMS arrival. The patient rates the pain 7/10 in severity. Symptoms aggravated by nothing. Symptoms alleviated by EMS treatment. Patient reports dizziness and CP. reports the patient recently started a new medication, Anoro, today. Pt reports he has a hx of grand mal seizures. - History of Current Complaint Chief Complaint: EDSeizure Stated Complaint: POST SEIZURE Time Seen by Provider: 06/07/18 20:32 Hx Obtained From: Patient, Family/Ship Construction Teacher Onset/Duration: Sudden Onset, Started hours ago, Resolved Timing: Constant Onset Severity: Moderate Current Severity: Moderate Seizure Severity: Moderate Pain Intensity: 7 Pain Scale Used: 0-10 Numeric Character: Dizzy Seizure Character: Generalized Aggravating: Nothing Alleviating: EMS Treatment Associated Signs and Symptoms: Positive: Dizziness Related Hx: Seizure - Allergy/Home Medications Allergies/Adverse Reactions: Allergies Allergy/AdvReac Type Severity Reaction Status Date / Time MS Penicillin G Allergy Severe Airway Verified 12/17/17 15:58 [Penicillin G] Obstruction Home Medications: Home Medications Albuterol HFA INHALER* [Ventolin HFA Inhaler*] 1 puff INH Q6H PRN 06/07/18 [ History Confirmed 06/07/18] Umeclidin 62.5 MDI(NF) [Incruse ELLIPTA MDI (NF)] 1 puff INH DAILY 06/07/18 [ History Confirmed 06/07/18] PMH/Surg Hx/FS Hx/Imm Hx Previously Healthy: No Cardiovascular History: Reports: Hx Myocardial Infarction Respiratory History: Reports: Hx Chronic Obstructive Pulmonary Disease (COPD) Sensory History: Reports: Hx Contacts or Glasses Denies: Hx Hearing Aid Opthamlomology History: Reports: Hx Contacts or Glasses Neurological History: Reports: Hx Seizures Psychiatric History: Reports: Hx Substance Abuse - alcohol - Surgical History Surgery Procedure, Year, and Place: NO HX OF SURGERY. Ingrown Toenail repair - Immunization History Immunizations Up to Date: Yes Infectious Disease History: No Infectious Disease History: Denies: Traveled Outside the [place] in Last 30 Days - Family History Known Family History: Positive: Cardiac Disease - [place], Seizure Disorder - mom, Other - CVA (mom); neg: aneurysm - Social History Occupation: Unemployed Lives: With Family Alcohol Use: None Alcohol Amount: NO ALCOHOL IN 2 YEARS Hx Substance Use: No Substance Use Type: Reports: Marijuana Hx Tobacco Use: Yes Smoking Status (MU): Heavy Every Day Tobacco Smoker Type: Cigarettes Amount Used/How Often: 1 pack/day Review of Systems Positive: Chest Pain Neurological: Other - Positive dizziness and seizure like activity All Other Systems Reviewed And Are Negative: Yes Physical Exam - Summary Physical Exam Summary: Appearance: Well-appearing, Well-nourished, lying in bed comfortably Skin: Warm, dry, no obvious rash Eyes: sclera anicteric, no conjunctival pallor ENT: mucous membranes moist, pharynx appears normal Neck: Supple, nontender Respiratory: Clear to auscultation, no signs of respiratory distress Cardiovascular: Normal S1, S2. No murmurs. Normal distal pulses in tibial and radial bilaterally. Abdomen: Soft, nontender, normal active bowel sounds present Musculoskeletal: Normal, Strength/ROM Intact Neurological: A&Ox3, awake and alert, mentation is normal, speech is fluent and appropriate Psychiatric: affect is normal, does not appear anxious or depressed Triage Information Reviewed: Yes Vital Signs On Initial Exam: Initial Vitals Resp 19 06/07/18 20:04 Vital Signs Reviewed: Yes Diagnostics - Vital Signs Vital Signs Temp Pulse Resp BP Pulse Ox 06/07/18 20:09 98.3 F 84 18 76/41 92 06/07/18 20:07 87 16 76/41 92 06/07/18 20:04 19 - Laboratory Lab Statement: Any lab studies that have been ordered have been reviewed, and results considered in the medical decision making process. Course/Dx - Course Course Of Treatment: This is a 57-year-old man with a history of epilepsy presents after a single tonic clonic seizure at home. He had a fairly short period of postictal confusion, but at present he is back to his baseline. There are no other concerning features of this seizure to prompt further diagnostic evaluation, so I have elected to discharge him. He and his are comfortable with this approach. - Diagnoses Provider Diagnoses: Seizure Discharge - Sign-Out/Discharge Documenting (check all that apply): Patient Departure - Discharge Plan Condition: Improved Disposition: HOME Patient Education Materials: Epilepsy (ED) Referrals: Chasidy Rodríguez MD [Medical Doctor] - Rafael Benavides PA [Primary Care Provider] - - Billing Disposition and Condition Condition: IMPROVED Disposition: Home
[2018-06-07 21:15] VITALS: BP 100/59
== END 2018-06-07 21:13 | disposition home or self-care (01) ==
LOC: ED 19:53
DX: G40.909 Epilepsy, unspecified, not intractable, without status epilepticus (principal); F17.210 Nicotine dependence, cigarettes, uncomplicated; Z88.0 Allergy status to penicillin
CPT/HCPCS: 99282

== ENCOUNTER 2019-07-12 01:31 | Emergency (ER) | payer OTHER ==
[2019-07-12] MEDS ORDERED: Albuterol/Ipratropium NEB.SOL* Albuterol 2.5 MG/Ipratropium 0.5 MG 3 ML INH ONE (02:01)
[2019-07-12] MEDS ORDERED: methylPREDNISolone 125 MG* 2 ML VIAL IV ONE (02:01)
--- NOTE | 2019-07-12 02:06 | ED ---
Neurological HPI - HPI Summary HPI Summary: This pt is a 58 Y/O M presenting to [facility] accompanied by his family with a CC of seizures PATROL SUPERVISOR. His stated that the pt drank for the first time in 4 years and he had a seizure. The seizures were episodic and lasted for about 1-2 seconds. He did not hit the ground since his and his son placed him on the ground. The pt did not lose consciousness during the episodes. The pt states that he has left anterior CP currently that is rated an 8/10 in severity. He stated that he was SOB and is more fatigued than usual. He denies any N/V, abdominal pain, headaches, fevers, and chills. The pt stated that he thinks drinking helped to cause the seziures. His stated that she gave him 2 Gabapentin prior to EMS arriving which helped to alleviate the severity of the seizures. He is currently post ictal. He has a PMHx of convulsions. - History of Current Complaint Chief Complaint: EDChestPainROMI Stated Complaint: SEIZURES/CHEST PAIN PER EMS Time Seen by Provider: 07/12/19 01:51 Hx Obtained From: Patient Onset/Duration: Sudden Onset, Started minutes ago - PATROL SUPERVISOR, Resolved Timing: Intermittent Episodes Lasting: - 1-2 seconds Pain Intensity: 8 Pain Scale Used: 0-10 Numeric Seizure Character: Tonic Aggravating: Alcohol/Drug Ingestion - alcohol Alleviating: Other - gabapentin Associated Signs and Symptoms: Positive: Negative - abdominal pain, and chills. , Seizure, Chest Pain - left anterior, Shortness of Breath. Negative: Headache , Nausea/Vomiting, Fever Related Hx: Seizure - Allergy/Home Medications Allergies/Adverse Reactions: Allergies Allergy/AdvReac Type Severity Reaction Status Date / Time penicillin G Allergy Severe Airway Verified 12/07/18 13:59 Obstruction Home Medications: Home Medications Albuterol/Ipratropium RESP(NF) [Combivent Respimat (NF)] 1 puff PO DAILY [History Confirmed 07/12/19] Budesonide/Formote 160/4.5(NF) [Symbicort 160/4.5 (NF)] 1 puff INH Q6HR PRN [History Confirmed 07/12/19] Umeclidin/Vilant 62.5 MDI(NF) [ANORO 62.5/25 Ellipta DEVICE (NF)] 1 inh INH DAILY 07/12/19 [History Confirmed 07/12/19] PMH/Surg Hx/FS Hx/Imm Hx Previously Healthy: Yes Endocrine/Hematology History: Denies: Hx Diabetes Cardiovascular History: Reports: Hx Myocardial Infarction Denies: Hx Hypertension Respiratory History: Reports: Hx Chronic Obstructive Pulmonary Disease (COPD) Sensory History: Reports: Hx Contacts or Glasses Denies: Hx Hearing Aid Opthamlomology History: Reports: Hx Contacts or Glasses Neurological History: Reports: Hx Seizures Psychiatric History: Reports: Hx Substance Abuse - alcohol - Surgical History Surgery Procedure, Year, and Place: NO HX OF SURGERY. Ingrown Toenail repair Infectious Disease History: No Infectious Disease History: Denies: Traveled Outside the [place] in Last 30 Days - Family History Known Family History: Positive: Cardiac Disease - [place], Seizure Disorder - mom, Other - CVA (mom); neg: aneurysm - Social History Alcohol Use: None Alcohol Amount: NO ALCOHOL IN 2 YEARS Hx Substance Use: Yes Substance Use Type: Reports: Marijuana Hx Tobacco Use: Yes Smoking Status (MU): Heavy Every Day Tobacco Smoker Type: Cigarettes Amount Used/How Often: 1 pack/day Review of Systems Positive: Fatigue. Negative: Fever, Chills Positive: Chest Pain - left anterior Positive: Shortness Of Breath Negative: Abdominal Pain, Vomiting, Nausea Negative: Headache All Other Systems Reviewed And Are Negative: Yes Physical Exam - Summary Physical Exam Summary: Appearance: Well appearing, no pain distress Skin: warm, dry, reflects adequate perfusion Head/face: normal Eyes: EOMI, LANDON ENT: normal Neck: supple, non-tender Respiratory: CTA, bilaterally decreased breath sounds present Cardiovascular: RRR, pulses symmetrical Abdomen: non-tender, soft Musculoskeletal: normal, strength/ROM intact Neuro: normal, sensory motor intact, A&Ox3 Triage Information Reviewed: Yes Vital Signs On Initial Exam: Initial Vitals Temp Pulse Resp BP Pulse Ox 98.2 F 70 18 101/60 93 07/12/19 01:36 07/12/19 01:36 07/12/19 01:36 07/12/19 01:36 07/12/19 01:36 Vital Signs Reviewed: Yes Diagnostics - Vital Signs Vital Signs Temp Pulse Resp BP Pulse Ox 07/12/19 01:36 98.2 F 70 18 101/60 93 - Laboratory Result Diagrams: 07/12/19 02:17 07/12/19 02:17 Lab Statement: Any lab studies that have been ordered have been reviewed, and results considered in the medical decision making process. - Radiology CXR Radiology Interpretation Completed By: ED Physician Summary of Radiographic Findings: no acute processes. Pending offical review. - CT Brain CT CT Interpretation Completed By: Radiologist Summary of CT Findings: 1. There is stable age-related diffuse cerebral volume loss and chronic. microvascular ischemic disease. 2. No acute intracranial pathology. ED physician has reviewed this report. - EKG 0140 Cardiac Rate: NL - 68 BPM EKG Rhythm: Sinus Rhythm ST Segment: Normal Ectopy: None Summary of EKG Findings: NSR at 68 BPM with Normal axis. Normal interval. No ischemic changes. Interpreted by Dr. Mir at 0145 07/12/19. Re-Evaluation - Re-Evaluation First Eval Re-Evaluation Time: 02:47 Change: Unchanged Comment: Pt's asked for help as the pt was having a seizure. The pt was alert and awake during the episode. Course/Dx - Course Course Of Treatment: This pt is a 58 Y/O M presenting to [facility] accompanied by his family with a CC of seizures. His stated that the pt drank for the first time in 4 years and he had a seizure. His PE found that he had bilaterally decreased breath sounds. His CXR shows no acute processes. His lab results were reviewed. His Brain CT found: 1. There is stable age-related diffuse cerebral volume loss and chronic. microvascular ischemic disease. 2. No acute intracranial pathology. His EKG found that he has a NSR at 68 BPM with Normal axis. Normal interval. No ischemic changes. He will be discharged home with a Dx of atypical chest pain and seizures. He will be insturcted to follow up with neurology via Dr. Tabares. - Differential Dx Differential Diagnoses Neuro: Positive: Viral Syndrome, Other - copd/ bronchospasm/?szs - Diagnoses Provider Diagnoses: Chest pain, COPD with acute exacerbation Discharge - Sign-Out/Discharge Documenting (check all that apply): Patient Departure - discharge Patient Received Moderate/Deep Sedation with Procedure: No - Discharge Plan Condition: Stable Disposition: HOME Prescriptions: methylPREDNISolone [Medrol] 4 mg PO ONCE #1 tab.[id number] Patient Education Materials: Chest Pain (ED), Recurrent Seizures in Adults (ED) Referrals: Alf Elder DO [Primary Care Provider] - 2 Days Jose A Tabares MD [Medical Doctor] - Additional Instructions: PLEASE FOLLOW UP WITH DR. TABARES, NEUROLOGY, AND YOUR PRIMARY CARE PHYSICIAN IN 1- 3 DAYS. RETURN TO THE EMERGENCY DEPARTMENT FOR ANY NEW OR WORSENING SYMPTOMS. TAKE THE MEDICATIONS PRESCRIBED TO YOU DIRECTED. - Billing Disposition and Condition Condition: STABLE Disposition: Home - Attestation Statements Document Initiated by Aram: Yes Documenting Scribe: Arjun De Leon Provider For Whom Aram is Documenting (Include Credential): Jeevan Mir MD Scribe Attestation: Arjun Saldaña, scribed for Jeevan Mir MD on 07/12/19 at 0549. Scribe Documentation Reviewed: Yes Provider Attestation: The documentation as recorded by the Arjun hoskins accurately reflects the service I personally performed and the decisions made by , Jeevan Mir MD Status of Scribe Document: Viewed
[2019-07-12 02:30] LABS: ABS Basophils 0.1 10^3/ul (0-0.2); ABS Eosinophils 0.3 10^3/ul (0-0.6); ABS Lymphocytes 2.3 10^3/ul (1.0-4.8); ABS Monocytes 0.7 10^3/ul (0-0.8); ABS Neutrophils 4.5 10^3/ul (1.5-7.7); Eosinophil % 4.4 %; Hematocrit 45 % (42-52); Hemoglobin 15.2 g/dL (14.0-18.0); Lymphocyte % 29.4 %; Mean Corpuscular HGB Conc 34 g/dL (31-36); Mean Corpuscular Hemoglobin 31 pg (27-31); Mean Corpuscular Volume 90 fL (80-94); Mean Platelet Volume 6.7 fL (7.4-10.4); Platelet Count 212 10^3/uL (150-450); Red Blood Count 4.97 10^6 /uL (4.18-5.48); Red Cell Distribution Width 13 % (10-15); White Blood Count 7.9 10^3/uL (3.5-10.8)
[2019-07-12 02:52] LABS: Albumin 4.1 g/dL (3.2-5.2); BUN/Creatinine Ratio 12.7 (8-20); Calcium 8.4 mg/dL (8.6-10.3); EGFR African American 121.1 (>60); Magnesium 2.1 mg/dL (1.9-2.7); Potassium 3.9 mmol/L (3.5-5.0); Total Protein 6.7 g/dL (6.4-8.9)
[2019-07-12 02:53] LABS: Albumin/Globulin Ratio 1.6 (1-3); Globulin 2.6 g/dL (2-4); Total Bilirubin 0.4 mg/dL (0.2-1.0)
[2019-07-12 02:55] LABS: Activated Partial Thrombo Time 39.5 seconds (26.0-38.0); INR 1.11 (0.82-1.09)
[2019-07-12 05:41] VITALS: BP 96/46
== END 2019-07-12 06:41 | disposition home or self-care (01) ==
LOC: ED 01:31
DX: J44.1 Chronic obstructive pulmonary disease with (acute) exacerbation (principal); R07.9 Chest pain, unspecified; I25.2 Old myocardial infarction; F17.210 Nicotine dependence, cigarettes, uncomplicated; Z79.899 Other long term (current) drug therapy; Z88.0 Allergy status to penicillin
CPT/HCPCS: 36415; 70450; 71045; 80053; 83735; 83880; 84484; 85025; 85610; 85730; 93005; 96374; 99284; A9270-GY; J2930

== ENCOUNTER 2019-10-06 02:25 | Emergency (ER) | payer OTHER ==
[2019-10-06] MEDS ORDERED: methylPREDNISolone 125 MG* 2 ML VIAL IV ONE (02:27)
--- NOTE | 2019-10-06 02:46 | ED ---
Shortness of Breath - HPI Summary HPI Summary: This pt is a 58 y/o male, with hx of seizures and COPD, presenting to [facility] via EMS for increased SOB. Pt states he has been feeling ill since last night with a cough, chest pain nausea, vomiting, headache, back pain. He describes a productive cough with yellow sputum. EMS reports pt had O2 saturation of 88% on room air. Per EMS, pt has sick contacts at home, family with bronchitis. EMS states pt with fever of 99.5F and pt's with a fever as well. EMS administered Duoneb x2 with good effect. Pt denies diarrhea. Per , pt wears 2L of oxygen at baseline. Pt is still a smoker. - History of Current Complaint Chief Complaint: EDShortnessOfBreath Time Seen by Provider: 10/06/19 02:26 Hx Obtained From: Patient Onset/Duration: Lasting Hours, Still Present Timing: Constant Dyspnea At: Rest Aggravating Factors: Nothing Alleviating Factors: Nothing Associated Signs & Symptoms: Cough (Productive), Chest Pain w/Cough, Fever - Allergy/Home Medications Allergies/Adverse Reactions: Allergies Allergy/AdvReac Type Severity Reaction Status Date / Time penicillin G Allergy Severe Airway Verified 12/07/18 13:59 Obstruction PMH/Surg Hx/FS Hx/Imm Hx Endocrine/Hematology History: Denies: Hx Diabetes Cardiovascular History: Reports: Hx Myocardial Infarction Denies: Hx Hypertension Respiratory History: Reports: Hx Chronic Obstructive Pulmonary Disease (COPD) Sensory History: Reports: Hx Contacts or Glasses Denies: Hx Hearing Aid Opthamlomology History: Reports: Hx Contacts or Glasses Neurological History: Reports: Hx Seizures Psychiatric History: Reports: Hx Substance Abuse - alcohol - Surgical History Surgery Procedure, Year, and Place: NO HX OF SURGERY. Ingrown Toenail repair Infectious Disease History: No Infectious Disease History: Denies: Traveled Outside the [place] in Last 30 Days - Family History Known Family History: Positive: Cardiac Disease - [place], Seizure Disorder - mom, Other - CVA (mom); neg: aneurysm - Social History Alcohol Use: None Alcohol Amount: NO ALCOHOL IN 2 YEARS Hx Substance Use: Yes Substance Use Type: Reports: None Hx Tobacco Use: Yes Smoking Status (MU): Heavy Every Day Tobacco Smoker Type: Cigarettes Amount Used/How Often: 1 pack/day Review of Systems Positive: Fever Positive: Chest Pain Positive: Shortness Of Breath, Cough Positive: Vomiting, Nausea. Negative: Diarrhea Musculoskeletal: Other - POSITIVE: back pain Positive: Headache All Other Systems Reviewed And Are Negative: Yes Physical Exam - Summary Physical Exam Summary: Appearance: Patient is a disheveled and malodorous man lying in the stretcher in no acute distress Skin: Warm, dry, no obvious rash Eyes: sclera anicteric, no conjunctival pallor ENT: mucous membranes moist, pharynx appears normal Neck: Supple, nontender Respiratory: Mild expiratory wheezes Cardiovascular: Normal S1, S2. No murmurs. Normal distal pulses in tibial and radial bilaterally. Abdomen: Soft, nontender, normal active bowel sounds present Musculoskeletal: Normal, Strength/ROM Intact Neurological: A&Ox3, awake and alert, mentation is normal, speech is fluent and appropriate Psychiatric: affect is normal, does not appear anxious or depressed Triage Information Reviewed: Yes Vital Signs On Initial Exam: Initial Vitals Temp Pulse Resp BP Pulse Ox 100.3 F 96 24 122/89 91 10/06/19 02:26 10/06/19 02:26 10/06/19 02:26 10/06/19 02:26 10/06/19 02:26 Vital Signs Reviewed: Yes Procedures - Sedation Patient Received Moderate/Deep Sedation with Procedure: No Diagnostics - Vital Signs Vital Signs Temp Pulse Resp BP Pulse Ox 10/06/19 02:26 100.3 F 96 24 122/89 91 - Laboratory Result Diagrams: 10/06/19 02:38 10/06/19 02:38 Lab Statement: Any lab studies that have been ordered have been reviewed, and results considered in the medical decision making process. - Radiology Chest XR Radiology Interpretation Completed By: ED Physician Summary of Radiographic Findings: No acute process. - EKG 02:28 Cardiac Rate: NL - at 94 bpm EKG Rhythm: Sinus Rhythm Summary of EKG Findings: EKG at 02:28 shows NSR at 94 bpm. No STEMI. Normal EKG. Re-Evaluation - Re-Evaluation First Eval Re-Evaluation Time: 03:08 Comment: Pt reports feeling better after nebulizer treatment given to him in the ambulance. Course/Dx - Course Assessment/Plan: Pt is a 58 y/o male, with hx of seizures and COPD, presenting to [facility] via EMS for increased SOB. Pt states he has been feeling ill since last night with a cough, chest pain nausea, vomiting, headache, back pain. He describes a productive cough with yellow sputum. EMS reports pt had O2 saturation of 88% on room air. 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 Pt has sick contacts of family with bronchitis. Lab work obtained and unremarkable. Chest XR shows no acute process. In the ED course the pt was given solu-medrol. Pt will be discharged home with follow up from his PCP. He was given a prescription for Prednisone. He was instructed to return to the ED for any new or worsening symptoms. - Diagnoses Provider Diagnoses: COPD exacerbation Discharge ED - Sign-Out/Discharge Documenting (check all that apply): Patient Departure - Discharge home - Discharge Plan Condition: Good Disposition: HOME Prescriptions: predniSONE TAB* [Deltasone 20 MG TAB*] 40 mg PO DAILY 5 Days #10 tab Patient Education Materials: How to Stop Smoking (ED), COPD (Chronic Obstructive Pulmonary Disease) (ED) Referrals: Alf Elder DO [Primary Care Provider] - 3 Days Additional Instructions: Continue using your nebulizer and/or your inhalers, in particular the albuterol will help with wheezing and shortness of breath when it flares up. The steroids will take hold through the morning and should help quite a bit as well. - Billing Disposition and Condition Condition: GOOD Disposition: Home - Attestation Statements Document Initiated by Aram: Yes Documenting Marilyibe: Josie Rosas Provider For Whom Aram is Documenting (Include Credential): MD Marily Mulleribbryant Attestation: Josie Saldaña, scribed for Basilio Jama MD on 10/06/19 at 1825. Scribe Documentation Reviewed: Yes Provider Attestation: The documentation as recorded by the Josie hoskins accurately reflects the service I personally performed and the decisions made by me, Basilio Jama MD Status of Scrrl Document: Viewed
[2019-10-06 02:52] LABS: ABS Eosinophils 0.1 10^3/ul (0-0.6); ABS Monocytes 0.7 10^3/ul (0-0.8); ABS Neutrophils 4.1 10^3/ul (1.5-7.7); Eosinophil % 1.9 %; Hematocrit 45 % (42-52); Hemoglobin 15.1 g/dL (14.0-18.0); Lymphocyte % 15.9 %; Mean Corpuscular HGB Conc 34 g/dL (31-36); Mean Corpuscular Hemoglobin 30 pg (27-31); Mean Corpuscular Volume 89 fL (80-94); Nucleated Red Blood Cells % 0.6; Platelet Count 168 10^3/uL (150-450); Red Blood Count 5.02 10^6 /uL (4.18-5.48); Red Cell Distribution Width 13 % (10-15)
[2019-10-06 03:09] LABS: Albumin 4.1 g/dL (3.2-5.2); Albumin/Globulin Ratio 1.6 (1-3); BUN/Creatinine Ratio 12.1 (8-20); Calcium 8.5 mg/dL (8.6-10.3); EGFR African American 93.3 (>60); EGFR Non-African American 77.1 (>60); Globulin 2.5 g/dL (2-4); Potassium 3.9 mmol/L (3.5-5.0); Total Bilirubin 0.6 mg/dL (0.2-1.0); Total Protein 6.6 g/dL (6.4-8.9)
[2019-10-06 04:00] VITALS: BP 100/71
== END 2019-10-06 04:16 | disposition home or self-care (01) ==
LOC: ED 02:25
DX: J44.1 Chronic obstructive pulmonary disease with (acute) exacerbation (principal); I25.2 Old myocardial infarction; F17.210 Nicotine dependence, cigarettes, uncomplicated; Z88.0 Allergy status to penicillin
CPT/HCPCS: 36415; 71046; 80053; 83605; 84484; 85025; 87040; 93005; 96374; 99283; J2930

== ENCOUNTER 2019-10-08 10:53 | Observation (INO) | payer OTHER ==
--- OUTSIDE RECORDS SUMMARY | 2019-10-08 11:06 | XMS REPORT | Summary of Care ---
:1960 Author Organization [facility] Address [address] [facility] [place] [address] Care Team Providers Name Role Phone Alf Elder Primary Care Provider Reason for Visit Reason Comments URI wheezing, CP, CC sunday night, not eating and not drinking, did CXR came back normal, Put on prednisone, has not had cigarette in 2 days, very weak and shaky, visibly SOB Encounter Details Date Type Department Care Team Description 10/08/2019 Office Visit [facility] Alf Elder, COPD exacerbation (HCC) (Primary Dx); Practice [address] [facility] Labored breathing [address] [place] [address] [place] [address] [phone] Allergies Active Allergy Reactions Severity Noted Date Comments Aspirin Rash 02/25/2018 Penicillins Hives 02/25/2018 documented as of this encounter (statuses as of 10/08/2019) Medications Medication Sig Dispensed Refills Start Date End Date Status umeclidinium bromide Take 1 INHL by 0 Active (INCRUSE ELLIPTA) inhalation DAILY. 62.5 MCG/INH Inhalation AEROSOL POWDER, BREATH ACTIVATED sertraline (ZOLOFT) Take 1 Tab by mouth 30 Tab 0 03/06/2018 Active 25 MG Oral Tab EVERY BEDTIME. Thiamine 50 MG Oral Take 1 Cap by mouth 24 Cap 0 03/25/2018 Active CapIndications: EVERY MON, WED & Thiamine deficiency SUNDAY. permethrin (NIX) 1 % Apply to hair and 1 Bottle 0 06/20/2018 Active Apply externally scalp. Leave on Lotion hair for 10 minutes (but no longer), then rinse off with warm water. One time albuterol HFA Take 2 Puffs by 0 Active (VENTOLIN HFA) 108 inhalation EVERY (90 Base) MCG/ACT FOUR HOURS Inhalation Aero Soln NEEDED. citalopram (CELEXA) Take 1 Tab by mouth 60 Tab 0 07/03/2018 Active 10 MG Oral DAILY. TabIndications: Anxiety lisinopril (PRINIVIL, Take 20 mg by mouth 0 Active ZESTRIL) 20 MG Oral DAILY. Tab atorvastatin Take 10 mg by mouth 0 Active (LIPITOR) 10 MG Oral DAILY. Tab loratadine Take 1 Tab by mouth 30 Tab 0 08/14/2018 Active (CLARITIN,ALAVERT) 10 DAILY. MG Oral TabIndications: Itching fexofenadine Take 1 Tab by mouth 30 Tab 0 08/20/2018 Active (GERMANIA) 180 MG Oral EVERY MORNING. TabIndications: Itching umeclidinium-VILANTER Take 1 INHL by 0 Active OL (ANORO ELLIPTA) inhalation DAILY. 62.5-25 MCG/INH Inhalation AEROSOL POWDER, BREATH ACTIVATED predniSONE Take 1 Tab by mouth 18 Tab 0 10/30/2018 Active (DELTASONE) 20 MG DIRECTED. 3 tabs Oral TabIndications: for 3 days then 2 COPD exacerbation tabs for 3 days (HCC) then 1 tab for 3 days doxycycline Take 100 mg by 20 Tab 0 10/30/2018 Active (VIBRAMYCIN) 100 MG mouth TWICE DAILY. Oral TabIndications: COPD exacerbation (HCC) Permethrin-Nit 1 Appl by 1 Kit 0 11/13/2018 Active Remover (NIX COMPLETE Combination route LICE TREATMENT) 1 & DIRECTED. Prior 0.25 % Combination to application, Kit wash hair with conditioner-free shampoo; rinse with water and towel dry. clonazePAM (KLONOPIN) Take 1 Tab by mouth 60 Tab 0 12/17/2018 Active 0.5 MG Oral Tab TWICE DAILY. Max Daily Amount: 1 mg. gabapentin TAKE ONE CAPSULE BY 90 Cap 0 03/21/2019 Active (NEURONTIN) 100 MG MOUTH THREE TIMES A Oral Cap DAY primidone (MYSOLINE) TAKE ONE TABLET BY 60 Tab 0 03/21/2019 Active 50 MG Oral Tab MOUTH TWICE A DAY SM ASPIRIN ADULT LOW TAKE ONE TABLET BY 90 Tab 5 07/17/2019 Active STRENGTH 81 MG Oral MOUTH DAILY Tab EC documented as of this encounter (statuses as of 10/08/2019) Active Problems Problem Noted Date COPD (chronic obstructive pulmonary disease) 03/11/2018 documented as of this encounter (statuses as of 10/08/2019) Social History Tobacco Use Types Packs/Day Years Used Date Current Every Day Smoker Cigarettes 0.5 Smokeless Tobacco: Never Used Alcohol Use Drinks/Week oz/Week Comments No Sex Assigned at Date Recorded Not on file Job Start Date Occupation Industry Not on file Not on file Not on file Travel History Travel Start Travel End No recent travel history available. documented as of this encounter Last Filed Vital Signs Vital Sign Reading Time Taken Comments Blood Pressure 120/72 10/08/2019 9:28 AM EST Pulse 84 10/08/2019 9:28 AM EST Temperature 37.4 10/08/2019 9:28 AM C (99.4 EST F) Respiratory Rate 22 10/08/2019 9:28 AM EST Oxygen Saturation 91% 10/08/2019 9:28 AM EST Inhaled Oxygen Concentration - - Weight 100.7 kg (221 lb 14.4 oz) 10/08/2019 9:28 AM EST Height 170.2 cm (5' 7") 10/08/2019 9:28 AM EST Body Mass Index 34.75 10/08/2019 9:28 AM EST documented in this encounter Progress Notes Alf Elder, DO - 10/08/2019 9:20 AM EST PATIENT: Luis Antonio Chery : 1960 DATE OF SERVICE: 10/08/2019 CHIEF COMPLAINT: Chief Complaint Patient presents with URI wheezing, CP, CC sunday night, not eating and not drinking, did CXR came back normal, Put on prednisone, has not had cigarette in 2 days, very weak and shaky , visibly SOB Subjective HISTORY OF PRESENT ILLNESS: Luis Antonio Chery is a 58-y.o. male. HPI Brought by 1 week of dyspnea, cough and wheezing Intermittent smoking continues Has baseline copd and follows with pulmonary Reports body aches, fevers/chills too No diarrhea No rashes Past Medical History: Diagnosis Date COPD (chronic obstructive pulmonary disease) (HCC) Essential (primary) hypertension Parkinson disease (HCC) Seizures (HCC) Family History Problem Relation Age of Onset Seizures Mother Current Outpatient Medications Medication Sig albuterol HFA (VENTOLIN HFA) 108 (90 Base) MCG/ACT Inhalation Aero Soln Take 2 Puffs by inhalation EVERY FOUR HOURS NEEDED. atorvastatin (LIPITOR) 10 MG Oral Tab Take 10 mg by mouth DAILY. citalopram (CELEXA) 10 MG Oral Tab Take 1 Tab by mouth DAILY. clonazePAM (KLONOPIN) 0.5 MG Oral Tab Take 1 Tab by mouth TWICE DAILY. Max Daily Amount: 1 mg. doxycycline (VIBRAMYCIN) 100 MG Oral Tab Take 100 mg by mouth TWICE DAILY. fexofenadine (GERMANIA) 180 MG Oral Tab Take 1 Tab by mouth EVERY MORNING. gabapentin (NEURONTIN) 100 MG Oral Cap TAKE ONE CAPSULE BY MOUTH THREE TIMES A DAY lisinopril (PRINIVIL, ZESTRIL) 20 MG Oral Tab Take 20 mg by mouth DAILY. loratadine (CLARITIN,ALAVERT) 10 MG Oral Tab Take 1 Tab by mouth DAILY. permethrin (NIX) 1 % Apply externally Lotion Apply to hair and scalp. Leave on hair for 10 minutes (but no longer), then rinse off with warm water. One time Permethrin-Nit Remover (NIX COMPLETE LICE TREATMENT) 1 & 0.25 % Combination Kit 1 Appl byCombination route DIRECTED. Prior to application, wash hair with conditioner-free shampoo; rinse with water and towel dry. predniSONE (DELTASONE) 20 MG Oral Tab Take 1 Tab by mouth DIRECTED. 3 tabs for 3 days then2 tabs for 3 days then 1 tab for 3 days primidone (MYSOLINE) 50 MG Oral Tab TAKE ONE TABLET BY MOUTH TWICE A DAY sertraline (ZOLOFT) 25 MG Oral Tab Take 1 Tab by mouth EVERY BEDTIME. SM ASPIRIN ADULT LOW STRENGTH 81 MG Oral Tab EC TAKE ONE TABLET BY MOUTH DAILY Thiamine 50 MG Oral Cap Take 1 Cap by mouth EVERY SUN, SUN & SUNDAY. umeclidinium bromide (INCRUSE ELLIPTA) 62.5 MCG/INH Inhalation AEROSOL POWDER, BREATH ACTIVATED Take 1 INHL by inhalation DAILY. umeclidinium-VILANTEROL (ANORO ELLIPTA) 62.5-25 MCG/INH Inhalation AEROSOL POWDER, BREATH ACTIVATED Take 1 INHL by inhalation DAILY. No current facility-administered medications for this visit. Allergies Allergen Reactions Aspirin Rash Penicillins Hives Social History Socioeconomic History Marital status: Spouse name: Not on file Number of children: Not on file Years of education: Not on file Highest education level: Not on file Occupational History Not on file Social Needs Financial resource strain: Not on file Food insecurity: Worry: Not on file Inability: Not on file Transportation needs: Medical: Not on file Non-medical: Not on file Tobacco Use Smoking status: Current Every Day Smoker Packs/day: 0.50 Types: Cigarettes Smokeless tobacco: Never Used Substance and Sexual Activity Alcohol use: No Drug use: No Sexual activity: Not on file Lifestyle Physical activity: Days per week: Not on file Minutes per session: Not on file Stress: Not on file Relationships Social connections: Talks on phone: Not on file Gets together: Not on file Attends adventist service: Not on file Active member of club or organization: Not on file Attends meetings of clubs or organizations: Not on file Relationship status: Not on file Intimate partner violence: Fear of current or ex partner: Not on file Emotionally abused: Not on file Physically abused: Not on file Forced sexual activity: Not on file Other Topics Concern Back Care Not Asked Bike Helmet Not Asked Blood Transfusions Not Asked Caffeine Concern Not Asked Exercise Not Asked Hobby Hazards Not Asked International Travel Not Asked Service Not Asked Occupational Exposure Not Asked Seat Belt Not Asked Self-Exams Not Asked Sleep Concern Not Asked Special Diet Not Asked Stress Concern Not Asked Weight Concern Not Asked Social History Narrative Disabled due to medical issues Lives with Over the last 2 weeks, have you been feeling down, depressed, anxious, or hopeless?: 0 Over the past 2 weeks, have you felt little interest or pleasure in doing things ?: 0 REVIEW OF SYSTEMS: Review of Systems Constitutional: Negative for diaphoresis. Cardiovascular: Negative for chest pain. Neurological: Negative for headaches. Objective PHYSICAL EXAM: VITALS: BP 120/72 (BP Location: Left arm, Patient Position: Sitting) | Pulse 84 | Temp 99.4 F(37.4 C) (Tympanic) | Resp 22 | Ht 5' 7" (1.702 m) | Wt 221 lb 14.4 oz (100.7 kg) | SpO2 91% | BMI 34.75 kg/m Body mass index is 34.75 kg/m. Physical Exam Constitutional: Appearance: He is ill-appearing. HENT: Head: Normocephalic and atraumatic. Mouth/Throat: Mouth: Mucous membranes are moist. Pharynx: Oropharynx is clear. Cardiovascular: Rate and Rhythm: Normal rate. Pulmonary: Breath sounds: Wheezing and rhonchi present. Comments: Mild labored breathing Neurological: Mental Status: He is alert. ASSESSMENT / IMPRESSION: ICD-9-CM ICD-10-CM 1. COPD exacerbation (HCC) 491.21 J44.1 2. Labored breathing 786.09 R06.4 Plan He has failed outpatient oral steroids and COPD symptoms are worsening. Directed back to go ER. Theychose to go by private car. Informed ER provider of the need for admission by phone after the visit. Author: Alf Elder DO 10/08/2019 09:44 documented in this encounter Plan of Treatment Health Maintenance Due Date Last Done Comments PNEUMOCOCCAL 0-64 YRS (1 of 1 1964 - PPSV23) LIPID DISORDER SCREENING 1976 COLONOSCOPY SCREENING 2008 ZOSTER IMMUNIZATION SERIES (1 2008 of 2) INFLUENZA VACCINE (#1) 2019 DIABETES SCREENING 08/14/2019 08/14/2018, 02/25/2018 DEPRESSION SCREENING 10/08/2020 10/08/2019 HEPATITIS C SCREENING Completed 03/19/2018 HIV SCREENING Completed 03/19/2018 HPV IMMUNIZATION SERIES Aged Out No longer eligible based on patient's age to complete this topic MENINGOCOCCAL VACCINE IMM Aged Out No longer eligible based on patient's age to complete this topic documented as of this encounter Goals Goal Patient Goal Associated Recent Patient-Stated? Author Type Problems Progress Smoking COPD No Alf Elder DO Note: This is an individualized treatment (COPD) goal for Luis Antonio Chery: Quit smoking immediately! Your provider has information and resources that may help you to quit. Keep immunizations current Lifestyle No Alf Elder DO Note: This is an individualized lifestyle goal for Luis Antonio Chery: Please be sure to keep up-to-date on recommended immunizations. For example, this would include a yearly influenza vaccine. Immunization status can be seen by looking at the Health Maintenance sections of your [facility], Plan of Care, and any After Visit Summaries. Take all prescribed medications as directed Self-management No Alf Elder DO Note: This is an individualized self-management goal for Luis Antonio Chery: Please take all prescribed medications as directed. 1. Do not skip doses. If you cannot afford your medications, talk with your doctor. 2. Use a pill reminder system such as a pill box if needed. Your pharmacist can help you with this. 3. Contact your Pharmacy 5 days before your medication runs out. If you cannot take your medications for any reasons, talk with your doctor. 4. Please bring all of your medication bottles and inhalers (or a list of all your medications/inhalers) with you to every visit. Potential barriers to meeting all of your care plan goals will continue to be addressed on an ongoing basis. documented as of this encounter Results Not on filedocumented in this encounter Visit Diagnoses Diagnosis COPD exacerbation (HCC) - Primary Obstructive chronic bronchitis with exacerbation Labored breathing Other dyspnea and respiratory abnormality documented in this encounter documented as of this encounter Advance Directives Type Date Recorded Patient Spring Up Supervisor Explanation Advance Directives 02/25/2018 11:26 AM MICHAEL
[2019-10-08] MEDS ORDERED: Albuterol/Ipratropium NEB.SOL* Albuterol 2.5 MG/Ipratropium 0.5 MG 3 ML INH ONE ×2 (11:09→12:02)
[2019-10-08] MEDS ORDERED: methylPREDNISolone 125 MG* 2 ML VIAL IV ONE (11:09)
--- NOTE | 2019-10-08 11:10 | ED ---
Neurological HPI - HPI Summary HPI Summary: 58 [facility] at [facility] accompanied by family members complains of increased seizures since Sunday10/05/19. Family member states that patient had several grand mal seizures on 10/05 AM, and two seizures on the ambulance on the way to the ED on 10/05 PM. Patient was seen in ED on 10/05 PM for his seizures. Family member states that patient had worsening seizures today 10/08, went to see Dr. Johnson, primary care provider at [facility], who referred patient to ED for admission. Family member states patient had seizure at Dr. Johnson's office and another one on way to ED from Dr. Johnson's office. Hx seizure for which he takes medications. Family member states patient hasn't taken his medications this morning. Hx smoking. Patient states he quit smoking 3 days ago. Patient additionally complains of shortness of breath, cough, decreased fluid intake. On 2.5L O2 at home and oral steroids per family member. Patient did at home breathing treatment last night without relief. The patient rates the pain 10/10 in severity. Symptoms aggravated by nothing. Symptoms alleviated by nothing. - History of Current Complaint Stated Complaint: SEIZURES PER PT Time Seen by Provider: 10/08/19 10:56 Hx Obtained From: Patient Onset/Duration: Started days ago - 3, Still Present Timing: Intermittent Episodes Lasting: Current Severity: Severe Pain Intensity: 10 Pain Scale Used: 0-10 Numeric Aggravating: Nothing Alleviating: Nothing - Allergy/Home Medications Allergies/Adverse Reactions: Allergies Allergy/AdvReac Type Severity Reaction Status Date / Time penicillin G Allergy Severe Airway Verified 12/07/18 13:59 Obstruction Home Medications: Home Medications Primidone TAB(*) [Mysoline TAB(*)] 50 mg PO BEDTIME 10/08/19 [History Confirmed 10/08/19] PMH/Surg Hx/FS Hx/Imm Hx Endocrine/Hematology History: Denies: Hx Diabetes Cardiovascular History: Reports: Hx Myocardial Infarction Denies: Hx Hypertension Respiratory History: Reports: Hx Chronic Obstructive Pulmonary Disease (COPD) Sensory History: Reports: Hx Contacts or Glasses Denies: Hx Hearing Aid Opthamlomology History: Reports: Hx Contacts or Glasses Neurological History: Reports: Hx Seizures Psychiatric History: Reports: Hx Substance Abuse - alcohol - [facility] History [facility] Infectious Disease History: Denies: Traveled Outside the [place] in Last 30 Days - Family History Known Family History: Positive: Cardiac Disease - [place], Seizure Disorder - mom, Other - CVA (mom); neg: aneurysm - Social History Alcohol Use: None Hx Substance Use: Yes Hx Tobacco Use: Yes Smoking Status (MU): Former Smoker Type: Cigarettes Amount Used/How Often: 1 pack/day, quit 10/05/19 Review of Systems Positive: Shortness Of Breath, Cough Neurological: Other - seizure All Other Systems Reviewed And Are Negative: Yes Physical Exam - Summary Physical Exam Summary: Constitutional: Well-developed, Well-nourished, Alert. Tachypneic, in mild respiratory distress Skin: Warm, Dry HENT: Normocephalic; Atraumatic Eyes: Conjunctiva normal Neck: Musculoskeletal ROM normal neck. (-) JVD, (-) Stridor, (-) Tracheal deviation Cardio: Rhythm regular, rate normal, Heart sounds normal; Intact distal pulses; The pedal pulses are 2+ and symmetric. Radial pulses are 2+ and symmetric. (-) Murmur Pulmonary/Chest wall: Diffuse bilateral wheezes Abd: Soft, (-) tenderness, (-) Distension, (-) Guarding, (-) Rebound Musculoskeletal: (-) Edema Lymph: (-) Cervical adenopathy Neuro: Alert, Oriented x3 Psych: Mood and affect Normal Triage Information Reviewed: Yes Vital Signs On Initial Exam: Initial Vitals Temp Pulse Resp BP Pulse Ox 99.4 F 96 19 130/70 90 10/08/19 11:01 10/08/19 11:01 10/08/19 11:01 10/08/19 11:01 10/08/19 11:01 Vital Signs Reviewed: Yes Procedures - Sedation Patient Received Moderate/Deep Sedation with Procedure: No Diagnostics - Vital Signs Vital Signs Temp Pulse Resp BP Pulse Ox 10/08/19 11:01 99.4 F 96 19 130/70 90 - Laboratory Result Diagrams: 10/08/19 11:24 10/08/19 11:22 Lab Statement: Any lab studies that have been ordered have been reviewed, and results considered in the medical decision making process. - Radiology CXR Radiology Interpretation Completed By: Radiologist Summary of Radiographic Findings: LEFT BASILAR ATELECTASIS VERSUS CONSOLIDATION. ED physician has reviewed this report. - EKG 1117 Cardiac Rate: NL - 80 BPM EKG Rhythm: Sinus Rhythm Summary of EKG Findings: Normal sinus rhythm at 80 bpm, left axis deviation, normal IN, normal QRS, normal QTc, normal axis, normal ST, normal T-waves, normal EKG NIH Scale - NIH Scale Best Language (Describe Picture, Name Items): No Aphasia Dysarthria (Read Several Words): Normal Extinction and Inattention: No Abnormality Course/Dx - Course Course Of Treatment: 58 year old M from primary care provider's office complains of increased seizures, shortness of breath, cough since Sunday. Physical exam findigns: tachypneic, in mild respiratory distress, diffuse bilateral wheezes, no edema. Bloodwork results with no significant abnormalities except for WBC 12.7, MPV 7.1, absolute neuts 10.4, absolute monos 1.2, calcium 8.5. Blood gas results with no significant abnormalities except for ABG pO2 151, ABG O2 saturation 100.0. Rapid flu swabs negative for Influenza A and B. In the ED course, the patient was given Ativan 2 mg x2, normal saline fluids 1 L IV, Solumedrol 125 mg IV, Levaquin 750 mg, cefepime, Duoneb x2. Final dx community acquired pneumonia, seizures, COPD. Dr. Swann, hospitalist, agrees to admit patient 12:47. The patient will be admitted to the hospitalist. The patient is agreeable with this plan. - Diagnoses Provider Diagnoses: Community acquired pneumonia, Seizures, CHF (congestive heart failure) - Physician Notifications Discussed Care Of Patient With: Khushi Swann Time Discussed With Above Provider: 12:47 Instructed by Provider To: Other - Dr. Swann, hospitalist, Discharge ED - Sign-Out/Discharge Documenting (check all that apply): Patient Departure - Admit - Discharge Plan Condition: Stable Disposition: ADMITTED TO [facility] Referrals: Alf Elder DO [Primary Care Provider] - - Billing Disposition and Condition Condition: STABLE Disposition: Admitted to [facility] - Attestation Statements Document Initiated by Scribe: Yes Documenting Scribe: Cristela Levi Provider For Whom Scribe is Documenting (Include Credential): Rupa Olson MD Scribe Attestation: I, Cristela Levi, scribed for Rupa Grimaldo MD on 10/08/19 at 1434. Scribe Documentation Reviewed: Yes Provider Attestation: The documentation as recorded by the scribe, Cristela Levi accurately reflects the service I personally performed and the decisions made by me, Rupa Grimaldo MD Status of Scribe Document: Viewed
[2019-10-08 11:46] LABS: ABS Eosinophils 0.1 10^3/ul (0-0.6); ABS Monocytes 1.2 10^3/ul (0-0.8); ABS Neutrophils 10.4 10^3/ul (1.5-7.7); Eosinophil % 0.5 %; Hematocrit 45 % (42-52); Hemoglobin 15.1 g/dL (14.0-18.0); Lymphocyte % 8.2 %; Mean Corpuscular HGB Conc 34 g/dL (31-36); Mean Corpuscular Hemoglobin 30 pg (27-31); Mean Corpuscular Volume 90 fL (80-94); Mean Platelet Volume 7.1 fL (7.4-10.4); Platelet Count 204 10^3/uL (150-450); Red Blood Count 4.98 10^6 /uL (4.18-5.48); Red Cell Distribution Width 13 % (10-15); White Blood Count 12.7 10^3/uL (3.5-10.8)
[2019-10-08 11:57] LABS: Albumin 4.1 g/dL (3.2-5.2); Albumin/Globulin Ratio 1.6 (1-3); BUN/Creatinine Ratio 18.5 (8-20); Calcium 8.5 mg/dL (8.6-10.3); EGFR African American 101.5 (>60); EGFR Non-African American 83.9 (>60); Globulin 2.6 g/dL (2-4); Potassium 3.6 mmol/L (3.5-5.0); Total Bilirubin 0.6 mg/dL (0.2-1.0); Total Protein 6.7 g/dL (6.4-8.9)
[2019-10-08] MEDS ORDERED: Cefepime(*) 2 GM in NS 0.9% 50 ML* 50 ML IVPB ONE (12:00)
[2019-10-08] MEDS ORDERED: Levofloxacin 750 MG IVPREMIX(* 750 MG/150 ML BAG IVPB ONE (12:00)
[2019-10-08] MEDS ORDERED: LORazepam INJ* 2 MG/ML 1 ML VIAL IV PUSH ONE ×2 (12:04→12:34)
[2019-10-08] MEDS ORDERED: Lorazepam PYXIS KEY ONE (12:04)
[2019-10-08] MEDS ORDERED: Lorazepam PYXIS KEY PRN ×3 (12:04→16:08)
[2019-10-08] MEDS ORDERED: NS 0.9% 50 ML* 50 ML ONE (12:05)
[2019-10-08] MEDS ORDERED: LORazepam INJ* 2 MG/ML 1 ML VIAL ONE (12:06)
[2019-10-08 12:11] LABS: Influenza A Molecular NEGATIVE (Negative); Influenza B Molecular NEGATIVE (Negative)
[2019-10-08] MEDS ORDERED: Cefepime 2 GM in Dextrose(*) 2 GM/50 ML BAG IV ONE (12:28)
[2019-10-08] MEDS: NS 0.9% IV ONE ×2 (12:44→14:28)
[2019-10-08] MEDS ORDERED: Acetaminophen TAB* 325 MG PO PRN (13:57)
[2019-10-08] MEDS ORDERED: Albuterol/Ipratropium NEB.SOL* Albuterol 2.5 MG/Ipratropium 0.5 MG 3 ML INH PRN (14:09)
[2019-10-08] MEDS ORDERED: Albuterol 2.5 MG/3 ML NEB.SOL* (0.083%) INH PRN (14:10)
[2019-10-08] MEDS ORDERED: LORazepam INJ* 2 MG/ML 1 ML VIAL IV PUSH PRN (16:08)
--- NOTE | 2019-10-08 16:14 | HP ---
CC: Dr. Elder * HISTORY AND PHYSICAL: DATE OF ADMISSION: 10/08/19 PROVIDER: Edie Willard NP. PRIMARY CARE PROVIDER: Dr. Elder. ATTENDING PHYSICIAN WHILE IN THE HOSPITAL: Dr. Khushi Swann * (dictated by Edie Willard NP). CHIEF COMPLAINT: Cough, shortness of breath, seizures. HISTORY OF PRESENT ILLNESS: Mr. Chery is a 58-year-old male with past medical history significant for psychogenic nonepileptic attacks "seizures", hypertension, COPD, anxiety, hyperlipidemia, history of an MS, who presented to the emergency room with complaints of shortness of breath and cough as well as seizures. The patient reports that he has 5 seizures a day. He calls these mini seizures with hands shaking but he is still able to talk during his seizures. The patient's is at the bedside. She does report the patient has had a cough x1 week that is progressively worsened. Initially, he had clear secretions, now pale yellow with increased sputum production. The patient does have a history of COPD. She does report that the patient was seen here in the emergency room on Sunday due to seizure, shortness of breath, and chest pain. At the time, he was started on prednisone 20 mg and discharged home. The patient followed up with his primary care provider, Dr. Elder today, who recommended the patient come to the emergency room for further evaluation due to shortness of breath, cough, and concern for pneumonia. While in the emergency room, the patient had routine lab work drawn. He was found to have leukocytosis with white count of 12.7. He was tachycardic and tachypneic, meeting sepsis criteria. He had a chest x-ray that showed left lower lobe pneumonia. Due to these findings, Hospital Medicine was asked to see and evaluate the patient for admission. He does report mild fevers. Denies any unintended weight loss. Denies chest pain or edema. He does report cough that is productive with yellow secretions. Denies any hemoptysis. He does report progressively worsening shortness of breath. No nausea, vomiting, diarrhea, abdominal pain, hematuria, dysuria, focal weakness, sensory loss, visual complaints, dysphagia, arthralgias, myalgias, rashes, lesions, open sores , psychosis or anxiety. The patient does also report wheezing. Due to these findings, Hospital Medicine was asked to see and evaluate for admission. PAST MEDICAL HISTORY: Significant for seizures, the patient was diagnosed at [facility] on 01/13/16 with psychogenic nonepileptic attacks by neurologist at [facility] in [place] ; hypertension; COPD; anxiety; depression; hyperlipidemia; history of an MS. PAST SURGICAL HISTORY: Tonsillectomy, ingrown toenail surgery. HOME MEDICATIONS: Include: 1. Gabapentin 300 mg t.i.d. 2. ProAir inhaler as needed. 3. Anoro Ellipta 1 inhaled daily. 4. Primidone 100 mg in the morning. 5. Primidone 50 mg at bedtime. 6. Aspirin 81 mg p.o. daily. ALLERGIES: To PENICILLIN G. SOCIAL HISTORY: The patient reports he smokes a pack a day x40 years. Denies any alcohol use x4 years. He does report daily marijuana use. He is on disability. He is . Surrogate decision maker in the event he is unable to make his own decisions is his son, Gerardo. He is a full code. REVIEW OF SYSTEMS: A 14-point review of systems was completed. All pertinent positives were mentioned in the HPI, otherwise were negative. PHYSICAL EXAMINATION GENERAL: Mr. Chery is a 58-year-old male. He is alert and oriented, resting on the stretcher in the emergency room. He is in no acute distress. VITAL SIGNS: Blood pressure 106/63, heart rate is 94, respirations are 22, O2 saturation 91% on 3 L nasal cannula, temperature was 99.4. HEENT: Head is atraumatic, normocephalic. Eyes: EOMs are intact. Sclerae anicteric and not pale. Oral mucosa appeared to be moist. NECK: Supple. LUNGS: Clear to auscultation bilaterally. No wheezes, rales or rhonchi. CARDIAC: S1, S2. Regular rate and rhythm. No murmurs, rubs or gallops. ABDOMEN: Obese, soft, nontender. Bowel sounds are present x4. EXTREMITIES: He is able to move all 4 extremities. There is no clubbing or cyanosis. Pedal pulses are +2 bilaterally. He does have multiple abrasions noted to his arms and legs. NEUROLOGIC: He is awake, alert, oriented x3. Speech is clear. Thought process is intact. There is no gross focal deficits. SKIN: He does have multiple scratches noted to bilateral feet and arms as well as abdomen that are scabbed without surrounding erythema. DIAGNOSTIC STUDIES/LAB DATA: WBCs are 12.7, RBCs 4.98, hemoglobin 15.1, hematocrit 45, platelet count 204. ABG - pH is 7.42, pCO2 is 41, pO2 is 151, O2 saturation was 100%. Sodium 139, potassium 3.6, chloride 106, carbon dioxide is 28, anion gap is 5, BUN is 17, creatinine 0.92, glucose is 94, lactic acid 1.2, calcium was 8.5. ASTs were 13, ALTs were 12, alkaline phosphatase was 60. Troponin was 0.00. BNP was 82. Flu A and B were both negative. He had a chest x-ray, radiologist's impression: Left basilar atelectasis versus consolidation. He had an electrocardiogram, which showed sinus rhythm at rate of 80. No ST or T- wave changes. ASSESSMENT AND PLAN: Mr. Chery is a 58-year-old man with past medical history significant for chronic obstructive pulmonary disease, history of psychogenic nonepileptic seizures, hypertension, anxiety, who presented to the emergency room with complaints of cough, congestion, worsening shortness of breath and seizures but at his baseline. He will be admitted under observation for: 1. Sepsis, likely related to left lower lobe pneumonia. The patient does meet sepsis criteria with leukocytosis with white count of 12.7, tachycardia, and tachypnea with suspected source of left lower lobe pneumonia. He was given Levaquin in the emergency room. I will place him on ceftriaxone and azithromycin. I will give him Solu-Medrol 60 mg IV as the patient does have bilateral lungs with expiratory wheezes and scattered rhonchi, history of chronic obstructive pulmonary disease with increased sputum production, cough, and shortness of breath. Blood cultures are currently pending. I will send urine for UA, C and S. He will also have urine for Legionella and Streptococcus pneumoniae. Lactic acid was within normal limits at 1.2. He did receive IV fluids in the emergency room. We will send a sputum culture as well. 2. Psychogenic nonepileptic seizures. The patient was diagnosed with this in 2016 at [facility]. The continues to be worked up for epileptic versus nonepileptic seizures. He has a neurologist in [place]. He does report that he has 5 seizures daily and is currently at his baseline with his seizures. I have placed a neurology note from February in the chart. We will continue him on his gabapentin as previously prescribed. 3. Chronic obstructive pulmonary disease. The patient does have a history of chronic obstructive pulmonary disease. I suspect that he does have a mild exacerbation of his chronic obstructive pulmonary disease giving his underlying pneumonia. I will continue him on Solu-Medrol 60 mg IV daily. He will also continue on Anoro and he can have albuterol and Atrovent nebulizer as needed for shortness of breath and wheezing. Again, we will treat his underlying pneumonia with azithromycin and ceftriaxone. 4. History of tremors. He does take primidone at home. We will continue his primidone 100 mg in the morning, 50 mg at bedtime. 5. FEN. He can have a regular diet. 6. Code status. He is a full code. 7. DVT prophylaxis. I will place him on Lovenox subcu. TIME SPENT: Time spent on this admission was 60 minutes, greater than half that time was spent at the bedside reviewing events leading thus far to his hospitalization, performing physical exam, and reviewing my plan of care. I have discussed this with my attending, Dr. Khushi Swann; she is in agreement with my plan. EDIE WILLARD NP [id number]/[facility] #: [id number] EMMANUEL
[2019-10-08] MEDS: Enoxaparin(*) 40 MG/0.4 ML SYR SUBCUT SCH (16:53)
[2019-10-08] MEDS: NS 0.9% 1000 ML** 1,000 ML IV SCH (16:53)
[2019-10-08] MEDS: cefTRIAXone(*) 1 GM in NS 0.9% 50 ML* 50 ML IVPB SCH (16:53)
[2019-10-08 17:49] LABS: Urine Appearance Clear; Urine Bilirubin Negative (Negative); Urine Blood Negative (Negative); Urine Color Yellow; Urine Glucose Negative (Negative); Urine Ketones Negative (Negative); Urine Nitrite Negative (Negative); Urine Protein Negative (Negative); Urine Specific Gravity 1.023 (1.010-1.030); Urine Urobilinogen Negative (Negative)
[2019-10-08] MEDS ORDERED: Primidone TAB(*) 50 MG PO SCH (21:00)
[2019-10-08] MEDS: Gabapentin CAP(*) 300 MG PO SCH (21:34)
[2019-10-09 06:08] LABS: ABS Monocytes 0.8 10^3/ul (0-0.8); ABS Neutrophils 6.1 10^3/ul (1.5-7.7); Eosinophil % 0.1 %; Hematocrit 39 % (42-52); Hemoglobin 13.7 g/dL (14.0-18.0); Lymphocyte % 12.9 %; Mean Corpuscular HGB Conc 35 g/dL (31-36); Mean Corpuscular Hemoglobin 31 pg (27-31); Mean Corpuscular Volume 90 fL (80-94); Mean Platelet Volume 7.2 fL (7.4-10.4); Nucleated Red Blood Cells % 0.1; Platelet Count 175 10^3/uL (150-450); Red Blood Count 4.39 10^6 /uL (4.18-5.48); Red Cell Distribution Width 13 % (10-15)
[2019-10-09 06:14] LABS: INR 1.15 (0.82-1.09)
[2019-10-09 06:23] LABS: BUN/Creatinine Ratio 20.3 (8-20); Calcium 7.9 mg/dL (8.6-10.3); EGFR African American 121.1 (>60); Potassium 3.9 mmol/L (3.5-5.0)
[2019-10-09] MEDS: Gabapentin CAP(*) 300 MG PO SCH ×2 (08:33→15:06)
[2019-10-09] MEDS ORDERED: Influenza VAC *QUAD* 2019-20* 0.5 ML SYRINGE IM ONE (09:00)
[2019-10-09] MEDS ORDERED: Aspirin EC TAB* 81 MG TAB.EC PO SCH (09:00)
[2019-10-09] MEDS ORDERED: Primidone TAB(*) 50 MG PO SCH (09:00)
[2019-10-09] MEDS ORDERED: Tiotropium Brom/Olodaterol MDI INH SCH (09:00)
[2019-10-09] MEDS ORDERED: methylPREDNISolone SOD 40 MG* 1 ML VIAL IV SCH (09:00)
[2019-10-09] MEDS: NS 0.9% 1000 ML** 1,000 ML IV SCH (10:52)
[2019-10-09] MEDS ORDERED: Azithromycin 500 mg/250 ml NS 500 MG/250 ML BAG IVPB SCH (15:00)
[2019-10-09] MEDS: Enoxaparin(*) 40 MG/0.4 ML SYR SUBCUT SCH (15:06)
[2019-10-09 15:39] VITALS: BP 112/58
[2019-10-09] MEDS: cefTRIAXone(*) 1 GM in NS 0.9% 50 ML* 50 ML IVPB SCH (17:31)
--- NOTE | 2019-10-10 02:01 | DS ---
CC: Dr. Eldre * DISCHARGE SUMMARY: DATE OF ADMISSION: 10/08/19 DATE OF DISCHARGE: 10/09/19 ATTENDING PHYSICIAN: Dr. Swann.* (DICTATED BY TABATHA HUSTON NP) PRIMARY CARE PHYSICIAN: Dr. Elder. PRIMARY DIAGNOSIS: Mild chronic obstructive pulmonary disease exacerbation and pneumonia of the left lower lobe. SECONDARY DIAGNOSES: Psychogenic nonepileptic seizures and tremors. PROCEDURES: None. STUDIES: Chest x-ray showed left basilar atelectasis versus consolidation. EKG showed sinus rhythm. PERTINENT LAB STUDIES: Hemoglobin 13.7, hematocrit 39, MPV 7.2, BUN-creatinine ratio 20.3. Calcium 7.9 and serology negative for Influenza A or B. HISTORY OF PRESENT ILLNESS/HOSPITAL COURSE: This is a 58-year-old male with past medical history that is significant for psychogenic nonepileptic seizures, COPD, and hypertension, who was admitted on 10/08/19 for left lower lobe pneumonia. The patient had previously visited the emergency room on 10/05/19 where originally it was thought that he was having a COPD exacerbation, had been sent home with prednisone. When symptoms did not improve and the patient was producing yellow sputum, he returned to the emergency room where he was found to be septic with a white blood cell count of 12.7. He is tachycardic and tachypneic. He was then treated with normal saline bolus of 3270 mL of fluid and received Levaquin 750 mg IV x1 and methylprednisolone 125 mg IV x1 as well as DuoNebs. This afternoon, the patient is doing much better. Denies any chest pain, shortness of breath, abdominal pain, nausea, vomiting. His vital signs have improved. He is no longer tachycardic. He has been afebrile. Resps between 16 and 20, and normotensive, states he feels like he is ready to go. The patient also has been a pack a day smoker since he was a teenager and has not had anything to smoke since last Sunday and would like to continue in his attempts to quit. I educated the patient about the various smoking cessation options and he stated that he would like to try Chantix. REVIEW OF SYSTEMS: An 11-point system review was performed, which was negative for any chest pain, shortness of breath, fevers, chills, lightheadedness, abdominal pain, nausea, vomiting, issues moving his bowel or bladder. PHYSICAL EXAM: Vital Signs: 98.6, pulse 85, respirations 20, 93% oxygen on room air, though has been wearing 3 L off and on throughout the day. Eyes: Conjunctivae pink and moist. PERRLA. EOMs intact. ENT: Mucous membranes moist. Oropharynx clear. Neck is supple. Cardiac: S1, S2 present. Heart rate regular. No murmurs, gallops or rubs appreciated. Respiratory: Noted expiratory rhonchi middle and lower lobes of the lung bruce bilaterally. No accessory muscle use noted. Abdomen is softly distended per his norm, nontender. Positive bowel sounds x4. Musculoskeletal: No clubbing or cyanosis appreciated in the digits. Able to move all extremities. Skin: No open areas or rashes noted. Psych: Alert and oriented x3. Thought content organized. DISCHARGE PLAN: Diet is regular. Activity is as tolerated. Return precautions : The patient is to call 911 and return to the hospital if he has any sudden chest pain or shortness of breath or if he feels increasingly feverish, chilled. PROBLEMS: 1. Chronic obstructive pulmonary disease exacerbation, mild. The patient is normally on 3 L of oxygen at home during the night time. He states that he uses it off and on as needed throughout the day. The patient was noted to be 94 % on room air when checked, though has used oxygen off and on while here in the hospital and may resume that upon discharge. The patient is to go home with 1 more dose of prednisone to complete a 5-day 60 mg course of corticosteroids to help with inflammation. May continue his Ellipta and albuterol as needed. 2. Pneumonia, the patient has responded well to antibiotics. White blood cell count has decreased from 12.7 to 8.0 today. He is no longer feeling short of breath or dizzy. The patient is to continue on with azithromycin 500 mg once a day for 2 more doses and cefdinir 300 mg twice a day for the next 4 days. 3. Nicotine dependence. As touched upon above, the patient has an interest in continuing to not smoke. Prescribed the starting dose of Chantix and instructed him to follow up with his primary care provider to receive the additional needed doses to complete a total of 12-week treatment. 4. Psychogenic nonepileptic seizures was diagnosed originally at [facility] in 2016. This did not have any reports from the nurses of his typical hand shaking that he has when he has a "seizure." We will continue gabapentin as previously prescribed. 5. History of tremors, takes primidone typically at home and may continue on his normal regimen. CONTINUED HOME MEDICATIONS: 1. Gabapentin 300 mg p.o. t.i.d. 2. Aspirin 81 mg p.o. daily. 3. Primidone 500 mg p.o. q.h.s. 4. Primidone 100 mg p.o. q.a.m. 5. Ellipta 61.5/25, 1 inhalation daily. 6. Albuterol 1 puff inhalation q.6 hours p.r.n. 7. Prednisone 600 mg p.o. daily x1. 8. Chantix 0.5 mg once a day for the first 3 days, then 0.5 mg twice a day for the next 4 days and then Chantix 1 mg p.o. daily on day 8 onward to complete a total of 12-week treatment. 9. Cefdinir 300 mg p.o. b.i.d. x4 days. 10. Azithromycin 500 mg p.o. daily x2 days. CONDITION UPON DISCHARGE: Fair. DISPOSITION: Home. TIME SPENT: About 50 minutes with more than half of that spent [id number]. TABATHA HUSTON, PREPARATION DEPARTMENT SUPERVISOR [id number]/[facility] #: [id number] MTDD
== END 2019-10-09 17:30 | disposition home or self-care (01) ==
LOC: ED 10:53 → MED 13:57
PROVIDERS: ADMIT Internal Medicine; ATTEND Internal Medicine
DX: J44.1 Chronic obstructive pulmonary disease with (acute) exacerbation (principal); J18.1 Lobar pneumonia, unspecified organism; G40.409 Other generalized epilepsy and epileptic syndromes, not intractable, without status epilepticus; I25.2 Old myocardial infarction; I10 Essential (primary) hypertension; F41.9 Anxiety disorder, unspecified; E78.5 Hyperlipidemia, unspecified; Z88.0 Allergy status to penicillin; Z87.891 Personal history of nicotine dependence; Z79.82 Long term (current) use of aspirin; Z79.899 Other long term (current) drug therapy; Z23 Encounter for immunization
CPT/HCPCS: 36415; 71045; 80048; 80053; 81003; 82803; 83605; 83880; 84484; 85025; 85610; 87040; 87070; 87205; 87899; 90471; 90686; 93005; 94640; 96365; 96367; 96372; 96375; 96376; 99285; A9270-GY; G0008; G0378; J0456; J0692; J0696; J1650; J2060; J2920; J2930; J3535